=== PATIENT | male | born 1980 | race Caucasian/White ===

== ENCOUNTER 2017-10-10 15:25 | Inpatient (IN) | payer MEDICARE, OTHER ==
[~2017-10-10] VITALS: Ht 172.7 cm; Wt 84.4 kg
[~2017-10-10 15:25] MED LIST: BENZ2TAB PO; DIVA500T PO; DONE10TA7 PO; HALO1TAB PO; VITA100T2 PO
[2017-10-10 17:15] VITALS: BP 124/80; PULSE 100; RESP 16; O2SAT 98
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
[2017-10-10] MEDS ORDERED: diphenhydrAMINE HCL 50 MG CAP PO ONE (19:45)
[2017-10-10] MEDS ORDERED: HALOPERIDOL 5 MG TAB PO ONE (19:45)
[2017-10-10] MEDS ORDERED: LORazepam 2 MG/ML VIAL ONE (19:52)
[2017-10-10] MEDS ORDERED: diphenhydrAMINE HCL 50 MG/ML VIAL IM ONE (20:00)
[2017-10-10] MEDS ORDERED: ZIPRASIDONE MESYLATE 20 MG VIAL IM ONE (20:00)
[2017-10-11 07:16] LABS: AUTOMATED NEUTROPHIL # 3.8 TH/MM3 (1.8-7.7); BASOPHIL % 0.5 % (0.0-2.0); EOSINOPHIL # 0.1 TH/MM3 (0-0.4); EOSINOPHIL % 1.6 % (0.0-4.0); HEMATOCRIT 45.1 % (39.0-51.0); HEMO FLAGS DIFF FINAL; LYMPH % 30.3 % (9.0-44.0); MEAN CELL VOLUME 84.4 FL (80.0-100.0); MEAN CORPUSCULAR HEMOGLOBIN 29.5 PG (27.0-34.0); MEAN CORPUSCULAR HGB CONC 34.9 % (32.0-36.0); MONO % 10.6 % (0.0-8.0); PLATELET COUNT 219 TH/MM3 (150-450); RED BLOOD COUNT 5.35 MIL/MM3 (4.50-5.90); WHITE BLOOD COUNT 6.7 TH/MM3 (4.0-11.0)
[2017-10-11 07:34] LABS: ALT (GPT) 46 U/L (12-78); ANION GAP 7 MEQ/L (5-15); AST (GOT) 38 U/L (15-37); BICARBONATE 26.7 MEQ/L (21.0-32.0); BLOOD UREA NITROGEN 12 MG/DL (7-18); CHLORIDE 102 MEQ/L (98-107); GLOMERULAR FILTRATION RATE 89 ML/MIN (>89); SODIUM (NA) 136 MEQ/L (136-145)
[2017-10-11 07:37] LABS: ALKALINE PHOSPHATASE 88 U/L (45-117); TOTAL BILIRUBIN ADULT 1.4 MG/DL (0.2-1.0)
[2017-10-11 07:43] LABS: ACETAMINOPHEN LESS THAN 2.0 MCG/ML (10.0-30.0); ALCOHOL LESS THAN 3 MG/DL (0-5)
[2017-10-11] MEDS ORDERED: ALUMINUM/MAGNESIUM/SIMETH 30 ML CUP PO PRN (10:45)
[2017-10-11] MEDS ORDERED: MAGNESIUM HYDROXIDE SUSP 30 ML CUP PO PRN (10:45)
[2017-10-11] MEDS ORDERED: ACETAMINOPHEN 325 MG TAB PO PRN (10:45)
--- NOTE | 2017-10-11 11:01 | HHI.HP ---
Provisional Diagnosis Admission Date [place] I. Dementia with behavioral disturbance Certification of Person's Competence To Provide Express and Informed Consent I have personally examined Jose Hoffmann , a person being served at [facility] on, Oct 11, 2017 10:47. Express and informed consent means consent voluntarily given in writing, by a competent person, after sufficient explanation and disclosure of the subject matter involved to enable the person to make a knowing and willful decision without any element of force, fraud, deceit, duress, or other form of constraint or coercion. This person is 18 years of age or older, is not now known to be incompetent to consent to treatment with a guardian advocate, and does not have a health care surrogate or proxy currently making medical treatment decisions. I have found this person to be one of the following: [] Competent to provide express and informed consent, as defined above, for voluntary admission to this facility and is competent to provide express and informed consent for treatment. He/she has the consistent capacity to make well reasoned, willful, and knowing decisions concerning his or her medical or mental health treatment. The person fully and consistently understands the purpose of the admission for examination/placement and is fully capable of personally exercising all rights assured [place] [X] Incompetent to provide express and informed consent to voluntary admission, and this is incompetent to provide express and informed consent to treatment. The person must be transferred to involuntary status and a petition for a guardian advocate filed with the Circuit Court. [] Refusing to provide express and informed consent to voluntary admission but is competent to provide express and informed consent for treatment. The person must be discharged or transferred to involuntary status. Form shall be completed within 24 hours of a person's arrival at the receiving facility and filed in the clinical record of each person: 1. Admitted on a voluntary basis 2. Permitted to provide express and informed consent to his/her own treatment 3. Allowed to transfer from involuntary to voluntary status 4. Prior to permitting a person to consent to his or her own treatment after having been previously found incompetent to consent to treatment. History of Present Illness Capacity: Lacks Capacity HPI 37-year-old male brought in under a Tanner act for bizarre and inappropriate behavior. According to the Tanner act, the patient has been having emotional outbursts. The police have been called several times in the past due to the patient's "mental breakdowns". He was not violent last night but he told law enforcement that he was feeling down. He also indicated to law enforcement and to the physician and our emergency department that he has been off his medication for several months. This was confirmed by his mother, who reportedly works at [employer]. In the emergency department, the patient was observed to be acting in an erratic fashion and was wandering the unit. He required frequent redirection and was felt to be psychotic by the attending physician. He was unable to communicate whether he was suicidal or homicidal. When he got to the [facility] psychiatric unit, he was observed to drink his own urine, become angry and violent, throwing a Gatorade plastic bottle against the wall. At the time of this evaluation, the patient remains confused, disorganized and a poor historian. He would like to be admitted and he would like to "change his diaper". (Patient noted not to be wearing a diaper.) Review of Systems ROS Limitations: Poor Historian Except as stated in HPI: all other systems reviewed are Neg Past Psych History Psychological trauma history Unknown psychological trauma. Patient has history of traumatic brain injury. Violence risk - others (6 mos) High Violence risk - self (6 mos) High Substance Abuse History Drugs/Alcohol past 12 months Denied Past Family Social History Coded Allergies: No Known Allergies (Verified , 10/14/16) Active Scripts Benztropine (Benztropine) 2 Mg Tab, 2 MG PO HS, #30 TAB 0 Refills Prov:Yanely Interiano MD R2 10/17/16 Haloperidol (Haloperidol) 1 Mg Tab, 1 MG PO BID, #60 TAB 0 Refills Prov:Yanely Interiano MD R2 10/17/16 Donepezil (Donepezil) 10 Mg Tab, 10 MG PO HS for Dementia, #30 TAB 0 Refills Prov:Yanely Interiano MD R2 10/17/16 Thiamine (Vitamin B-1) 100 Mg Tab, 100 MG PO DAILY, #30 TAB Prov:Yanely Interiano MD R2 10/16/[address] (Divalproex DR) 500 Mg Tabdr, 500 MG PO BID, #60 TAB Prov:Yanely Interiano MD R2 10/16/16 Family Psych History Unknown. Patient is poor historian. Social History Patient is disabled and unemployed. Reportedly has a mother who works at [employer]. Patient has been noncompliant with prescribed medicine since July of this year. Patient reportedly does not have a problem with alcohol or substance abuse. Patient's Strengths (min. 2) Supportive family and access to healthcare. Physical Exam GENERAL: SKIN: Warm and dry. HEAD: Normocephalic. EYES: No scleral icterus. No injection or drainage. NECK: Supple, trachea midline. No JVD or lymphadenopathy. CARDIOVASCULAR: Regular rate and rhythm without murmurs, gallops, or rubs. RESPIRATORY: Breath sounds equal bilaterally. No accessory muscle use. GASTROINTESTINAL: Abdomen soft, non-tender, nondistended. MUSCULOSKELETAL: No cyanosis, or edema. BACK: Nontender without obvious deformity. No CVA tenderness. Vital Signs Vital Signs Date Time Temp Pulse Resp B/P (MAP) Pulse Ox O2 Delivery O2 Flow Rate FiO2 10/10/17 17:15 100 16 124/80 (95) 98 Lab Results Test 10/11/17 06:55 10/11/17 07:00 White Blood Count 6.7 TH/MM3 Red Blood Count 5.35 MIL/MM3 Hemoglobin 15.8 GM/DL Hematocrit 45.1 % Mean Corpuscular Volume 84.4 FL Mean Corpuscular Hemoglobin 29.5 PG Mean Corpuscular Hemoglobin Concent 34.9 % Red Cell Distribution Width 13.0 % Platelet Count 219 TH/MM3 Mean Platelet Volume 8.0 FL Neutrophils (%) (Auto) 57.0 % Lymphocytes (%) (Auto) 30.3 % Monocytes (%) (Auto) 10.6 % Eosinophils (%) (Auto) 1.6 % Basophils (%) (Auto) 0.5 % Neutrophils # (Auto) 3.8 TH/MM3 Lymphocytes # (Auto) 2.0 TH/MM3 Monocytes # (Auto) 0.7 TH/MM3 Eosinophils # (Auto) 0.1 TH/MM3 Basophils # (Auto) 0.0 TH/MM3 CBC Comment DIFF FINAL Differential Comment Blood Urea Nitrogen 12 MG/DL Creatinine 0.96 MG/DL Random Glucose 77 MG/DL Total Protein 7.5 GM/DL Albumin 4.2 GM/DL Calcium Level 8.9 MG/DL Alkaline Phosphatase 88 U/L Aspartate Amino Transf (AST/SGOT) 38 U/L Alanine Aminotransferase (ALT/SGPT) 46 U/L Total Bilirubin 1.4 MG/DL Sodium Level 136 MEQ/L Potassium Level 4.0 MEQ/L Chloride Level 102 MEQ/L Carbon Dioxide Level 26.7 MEQ/L Anion Gap 7 MEQ/L Estimat Glomerular Filtration Rate 89 ML/MIN Salicylates Level LESS THAN 1.7 MG/DL Acetaminophen Level LESS THAN 2.0 MCG/ML Valproic Acid (Depakene) Level LESS THAN 3 MCG/ML Ethyl Alcohol Level LESS THAN 3 MG/DL Urine Opiates Screen NEG Urine Barbiturates Screen NEG Urine Amphetamines Screen NEG Urine Benzodiazepines Screen NEG Urine Cocaine Screen NEG Urine Cannabinoids Screen NEG Mental Status Examination Appearance: Disheveled Consciousness: Alert Orientation: Person Motor Activity: Normal gait Speech: Incoherent Language: Adequate Fund of Knowledge: Inadequate Attention and Concentration: Inadequate Memory: Impaired Mood: Other Affect: Labile Thought Process & Associations: Disorganized Thought Content: Other Hallucination Type: Other Delusion Type: Bizarre Suicidal Ideation: No Suicidal Plan: No Suicidal Intention: No Homicidal Ideation: No Homicidal Plan: No Homicidal Intention: No Insight: Poor Judgment: Poor Assessment & Plan Problem List: (1) Dementia in other diseases classified elsewhere with behavioral disturbance ICD Codes: F02.81 - Dementia in other diseases classified elsewhere with behavioral disturbance (2) History of traumatic brain injury ICD Codes: Z87.820 - Personal history of traumatic brain injury Assessment & Plan Estimated LOS: days. 37-year-old male presents under a Tanner act for inappropriate behavior and noncompliance with medications. Patient is a poor historian and apparently is under a power of senior attorney. Last night he became violent and threw a Gatorade bottle against the wall. He also drank his own urine. He is currently talking about changing his diaper. He is felt to be in danger of imminent harm to himself or others and for this reason he is being admitted for medication stabilization. This physician has ordered a CBC and comprehensive metabolic panel to determine if the patient has some infectious process or metabolic process which is causing or contributing to his confusion. I am also ordering thyroid stimulating hormone level, vitamin B-12 level and vitamin D level to determine if deficiencies in these areas are causing or contributing to his confusion. I am ordering an EKG to determine his cardiac conduction status prior to placing him back on psychotropic medications. A hospitalist consult was also placed as the patient was observed drinking his own urine and is unable to credibly provide history of any physical complaints he might have. This physician spoke with the patient's nurse, Maddie, regarding his recent behavior in the emergency department. Case management is also being involved to assist with information gathering and disposition planning. Daniel Zhao MD Oct 11, 2017 11:01
[2017-10-11 12:41] VITALS: BP 129/84; PULSE 79; RESP 18; TEMP 98.3; O2SAT 98
[2017-10-11] MEDS: LORazepam 2 MG/ML VIAL IM PRN (23:25)
[2017-10-12 06:07] VITALS: BP 127/75; PULSE 104; RESP 20; TEMP 97.5; O2SAT 100
[2017-10-12 07:31] LABS: AUTOMATED NEUTROPHIL # 3.2 TH/MM3 (1.8-7.7); BASOPHIL % 0.8 % (0.0-2.0); EOSINOPHIL # 0.1 TH/MM3 (0-0.4); HEMATOCRIT 46.3 % (39.0-51.0); HEMO FLAGS DIFF FINAL; LYMPH % 34.2 % (9.0-44.0); MEAN CELL VOLUME 84.2 FL (80.0-100.0); MEAN CORPUSCULAR HEMOGLOBIN 29.3 PG (27.0-34.0); MEAN CORPUSCULAR HGB CONC 34.8 % (32.0-36.0); MONO % 8.4 % (0.0-8.0); NEUT % 54.6 % (16.0-70.0); PLATELET COUNT 242 TH/MM3 (150-450); RED BLOOD COUNT 5.49 MIL/MM3 (4.50-5.90); RED CELL DISTRIBUTION WIDTH 12.9 % (11.6-17.2); WHITE BLOOD COUNT 5.8 TH/MM3 (4.0-11.0)
[2017-10-12 07:56] LABS: ALT (GPT) 53 U/L (12-78); ANION GAP 7 MEQ/L (5-15); AST (GOT) 41 U/L (15-37); BICARBONATE 28.6 MEQ/L (21.0-32.0); BLOOD UREA NITROGEN 10 MG/DL (7-18); CHLORIDE 103 MEQ/L (98-107); GLOMERULAR FILTRATION RATE 106 ML/MIN (>89); POTASSIUM 3.5 MEQ/L (3.5-5.1); SODIUM (NA) 139 MEQ/L (136-145)
[2017-10-12 08:22] LABS: ALKALINE PHOSPHATASE 90 U/L (45-117); HDL CHOLESTEROL 45.1 MG/DL (40.0-60.0); LDL CHOLESTEROL 38 MG/DL (0-99); TOTAL BILIRUBIN ADULT 0.8 MG/DL (0.2-1.0)
--- NOTE | 2017-10-12 10:48 | PD.CONS ---
[facility] By Dr. Zhao, psychiatry Reason for Consult Patient was drinking his own urine Primary Care Physician No Primary Care Physician Diagnoses: History of Present Illness This patient is a 37-year-old gentleman who came to the ED for evaluation of psychiatric behavior. He has a known history of traumatic brain injury with dementia and was at the time of the initial evaluation interacting with internal stimuli. Patient has apparently not been taking his medications as per the record. The psychiatric team to consult to medicine team due to the patient regarding his own urine. The patient does not deny this. He is a very poor historian and makes animal sounds and otherwise has gentle thought with erratic speech. Patient was seen and evaluated with medical staff to the psychiatric unit. Care plan discussed with the extrusion machine operator. There has been no reported increased urinary frequency, dysuria, or other further episodes of imbibing urine. His vital signs and electrolytes are relatively stable at this time. Review of Systems ROS Limitations: Poor Historian (due to his dementia) Past Family Social History Allergies: Coded Allergies: No Known Allergies (Verified , 10/14/16) Past Medical History Traumatic brain injury Dementia Past Surgical History Orthopedic Reported Medications Reviewed in the EMR Active Ordered Medications Reviewed in the EMR Family History Unavailable at this time as patient is a poor historian Social History Patient's power of sports attorney, smokes cigars Physical Exam Vital Signs Vital Signs Date Time Temp Pulse Resp B/P (MAP) Pulse Ox O2 Delivery O2 Flow Rate FiO2 10/12/17 06:07 97.5 104 20 127/75 (92) 100 10/11/17 13:03 10/11/17 12:41 98.3 79 18 129/84 (99) 98 Physical Exam GENERAL: This is a well-nourished, well-developed patient, making duct sounds, tangential and disorganized thought pattern SKIN: No rashes, ecchymoses or lesions. Cool and dry. HEAD: Atraumatic. Normocephalic. No temporal or scalp tenderness. EYES: Pupils equal round and reactive. Extraocular motions intact. No scleral icterus. No injection or drainage. ENT: Nose without bleeding, purulent drainage or septal hematoma. Throat without erythema, tonsillar hypertrophy or exudate. Uvula midline. Airway patent. NECK: Trachea midline. No JVD or lymphadenopathy. Supple, nontender, no meningeal signs. CARDIOVASCULAR: Regular rate and rhythm without murmurs, gallops, or rubs. RESPIRATORY: Clear to auscultation. Breath sounds equal bilaterally. No wheezes , rales, or rhonchi. GASTROINTESTINAL: Abdomen soft, non-tender, nondistended. No hepato-splenomegaly , or palpable masses. No guarding. MUSCULOSKELETAL: Extremities without clubbing, cyanosis, or edema. No joint tenderness, effusion, or edema noted. No calf tenderness. Negative Homans sign bilaterally. NEUROLOGICAL: Awake and alert. Cranial nerves II through XII intact. Motor and sensory grossly within normal limits. Five out of 5 muscle strength in all muscle groups. Normal speech. Laboratory Laboratory Tests Test 10/12/17 06:20 White Blood Count 5.8 Red Blood Count 5.49 Hemoglobin 16.1 Hematocrit 46.3 Mean Corpuscular Volume 84.2 Mean Corpuscular Hemoglobin 29.3 Mean Corpuscular Hemoglobin Concent 34.8 Red Cell Distribution Width 12.9 Platelet Count 242 Mean Platelet Volume 8.5 Neutrophils (%) (Auto) 54.6 Lymphocytes (%) (Auto) 34.2 Monocytes (%) (Auto) 8.4 Eosinophils (%) (Auto) 2.0 Basophils (%) (Auto) 0.8 Neutrophils # (Auto) 3.2 Lymphocytes # (Auto) 2.0 Monocytes # (Auto) 0.5 Eosinophils # (Auto) 0.1 Basophils # (Auto) 0.0 CBC Comment DIFF FINAL Differential Comment Blood Urea Nitrogen 10 Creatinine 0.82 Random Glucose 86 Total Protein 7.3 Albumin 4.2 Calcium Level 8.7 Alkaline Phosphatase 90 Aspartate Amino Transf (AST/SGOT) 41 Alanine Aminotransferase (ALT/SGPT) 53 Total Bilirubin 0.8 Sodium Level 139 Potassium Level 3.5 Chloride Level 103 Carbon Dioxide Level 28.6 Anion Gap 7 Estimat Glomerular Filtration Rate 106 Triglycerides Level 69 Cholesterol Level 97 LDL Cholesterol 38 HDL Cholesterol 45.1 Cholesterol/HDL Ratio 2.15 Vitamin B12 Level 734 25-Hydroxy Vitamin D Total 29.7 Thyroid Stimulating Hormone 3rd Gen 0.923 Result Diagram: 10/12/1761910/12/17619 Assessment and Plan Problem List: (1) Dementia ICD Code: F03.90 - Unspecified dementia without behavioral disturbance Status: Acute Plan: Patient with behavioral disturbance and disorganized thought. It is difficult to get a history from this patient due to his erratic conversation. The patient at this time appears stable. He has no specific complaints. Urine is in fact usually sterile and if this is the case we will not likely pose any long-term effects. At this point there is no further workup. Medicine to follow as needed Assessment and Plan Thank you for this consult, reconsult medicine as needed Sunita Hernandez MD Oct 12, 2017 10:48
--- NOTE | 2017-10-12 12:20 | EKG ---
Date Performed: 10/12/2017 Time Performed: 09:14:59 PTAGE: 37 years EKG: Sinus rhythm NORMAL ECG Compared to PREVIOUS TRACING , sinus arrhythmia no longer present. PREVIOUS TRACIN10/14/2016 16.09 DOCTOR: Daniel Roque Interpretating Date/Time 10/12/2017 12:19:04
--- NOTE | 2017-10-12 14:24 | HHI.PYPN ---
Subjective Remarks This is a request for second opinion. Patient was seen and admission note was reviewed. I agree with the contents of the admission note. Patient was disorganized and delusional at home. Today he remains tangential. He is corneal during the interview. Has not had any outbursts. Mental Status Examination Appearance: Disheveled Consciousness: Alert Orientation: Person, Place Motor Activity: Normal gait Speech: Incoherent Language: Adequate Fund of Knowledge: Inadequate Attention and Concentration: Inadequate Memory: Impaired Mood: Other Affect: Labile Thought Process & Associations: Disorganized Thought Content: Other Hallucination Type: Other Delusion Type: Bizarre Suicidal Ideation: No Suicidal Plan: No Suicidal Intention: No Homicidal Ideation: No Homicidal Plan: No Homicidal Intention: No Insight: Poor Judgment: Poor Results Labs Test 10/12/17 06:20 White Blood Count 5.8 TH/MM3 Red Blood Count 5.49 MIL/MM3 Hemoglobin 16.1 GM/DL Hematocrit 46.3 % Mean Corpuscular Volume 84.2 FL Mean Corpuscular Hemoglobin 29.3 PG Mean Corpuscular Hemoglobin Concent 34.8 % Red Cell Distribution Width 12.9 % Platelet Count 242 TH/MM3 Mean Platelet Volume 8.5 FL Neutrophils (%) (Auto) 54.6 % Lymphocytes (%) (Auto) 34.2 % Monocytes (%) (Auto) 8.4 % Eosinophils (%) (Auto) 2.0 % Basophils (%) (Auto) 0.8 % Neutrophils # (Auto) 3.2 TH/MM3 Lymphocytes # (Auto) 2.0 TH/MM3 Monocytes # (Auto) 0.5 TH/MM3 Eosinophils # (Auto) 0.1 TH/MM3 Basophils # (Auto) 0.0 TH/MM3 CBC Comment DIFF FINAL Differential Comment Blood Urea Nitrogen 10 MG/DL Creatinine 0.82 MG/DL Random Glucose 86 MG/DL Total Protein 7.3 GM/DL Albumin 4.2 GM/DL Calcium Level 8.7 MG/DL Alkaline Phosphatase 90 U/L Aspartate Amino Transf (AST/SGOT) 41 U/L Alanine Aminotransferase (ALT/SGPT) 53 U/L Total Bilirubin 0.8 MG/DL Sodium Level 139 MEQ/L Potassium Level 3.5 MEQ/L Chloride Level 103 MEQ/L Carbon Dioxide Level 28.6 MEQ/L Anion Gap 7 MEQ/L Estimat Glomerular Filtration Rate 106 ML/MIN Triglycerides Level 69 MG/DL Cholesterol Level 97 MG/DL LDL Cholesterol 38 MG/DL HDL Cholesterol 45.1 MG/DL Cholesterol/HDL Ratio 2.15 RATIO Vitamin B12 Level 734 PG/ML 25-Hydroxy Vitamin D Total 29.7 ng/ML Thyroid Stimulating Hormone 3rd Gen 0.923 uIU/ML Vitals/IOs Vital Signs Date Time Temp Pulse Resp B/P (MAP) Pulse Ox O2 Delivery O2 Flow Rate FiO2 10/12/17 06:07 97.5 104 20 127/75 (92) 100 Assessment & Plan Problem List: (1) Dementia in other diseases classified elsewhere with behavioral disturbance ICD Codes: F02.81 - Dementia in other diseases classified elsewhere with behavioral disturbance (2) History of traumatic brain injury ICD Codes: Z87.820 - Personal history of traumatic brain injury Assessment & Plan Patient is on Depakote and Aricept at home. We will resume these medications and get a level next week. I agree with the first opinion to continue petition. Criteria include confusion and bizarre behavior Justification for Cont. Inpt. Patient would decompensate in a less restrictive setting Ryne Rodrigues DO Oct 12, 2017 14:24
[2017-10-12] MEDS: DIVALPROEX SODIUM E.R. 500 MG TAB PO SCH ×3 (14:30→21:00)
[2017-10-12 18:18] VITALS: BP 121/70; PULSE 75; RESP 19; TEMP 97.8; O2SAT 100
[2017-10-12] MEDS: DONEPEZIL HCL 5 MG TAB PO SCH (20:37)
[2017-10-13] MEDS: LORazepam 2 MG/ML VIAL IM PRN (05:30)
[2017-10-13 05:47] VITALS: BP 136/93; PULSE 77; RESP 16; TEMP 97.9; O2SAT 97
[2017-10-13] MEDS: DIVALPROEX SODIUM E.R. 500 MG TAB PO SCH ×2 (08:16→20:44)
[2017-10-13 10:13] LABS: HEMOGLOBIN A1a 1.1 %; HEMOGLOBIN A1b 1.7 %; HEMOGLOBIN Ao 86.1 %; HEMOGLOBIN LA1C 1.9 %; HEMOGLOBIN P3 3.4 %
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
[2017-10-13 16:50] VITALS: BP 110/65; PULSE 81; RESP 18; TEMP 98.3; O2SAT 98
[2017-10-13] MEDS: DONEPEZIL HCL 5 MG TAB PO SCH (20:44)
[2017-10-13] MEDS: LORazepam 1 MG TAB PO PRN (20:44)
[2017-10-14 06:05] VITALS: BP 123/73; PULSE 56; RESP 17; TEMP 97.8
[2017-10-14 06:07] VITALS: TEMP 97.8
[2017-10-14] MEDS: DIVALPROEX SODIUM E.R. 500 MG TAB PO SCH ×2 (08:00→20:23)
--- NOTE | 2017-10-14 09:48 | HHI.PYPN ---
Subjective Remarks Patient seen and examined with nurse. Chart reviewed. Case discussed with nursing staff. On my examination today, the patient presents as somewhat oddly related but calm and cooperative with interview. He says that prior to admission he stopped his medications because of "unmanageability" although he has resume these medications on the unit without incident. He says that off of his medications he began to see things as if through "an orange lens, whitish, pinkish, red!" He denies AVH presently. Denies SI/HI. Some loosening of associations noted. Denies side effects from medications. No physical complaints. Review of Systems ROS Limitations: Poor Historian Except as stated in HPI: all other systems reviewed are Neg Mental Status Examination Appearance: Appropriate Consciousness: Alert Orientation: Person, Place Motor Activity: Normal gait, Other (no motor abnormalities noted) Speech: Unremarkable Language: Adequate Fund of Knowledge: Inadequate Attention and Concentration: Easily Distracted Memory: Impaired (suspect remains impaired) Mood: Other (calm) Affect: Appropriate, Euthymic Thought Process & Associations: Loose associations Thought Content: Bizarre thinking Hallucination Type: None (denies AVH) Delusion Type: None Suicidal Ideation: No Homicidal Ideation: No Insight: Poor Judgment: Poor Results Labs Item Value Date Time White Blood Count 5.8 TH/MM3 10/12/17 0620 Hemoglobin 16.1 GM/DL 10/12/17 0620 Platelet Count 242 TH/MM3 10/12/17 0620 Sodium Level 139 MEQ/L 10/12/17 0620 Potassium Level 3.5 MEQ/L 10/12/17 0620 Chloride Level 103 MEQ/L 10/12/17 0620 Carbon Dioxide Level 28.6 MEQ/L 10/12/17 0620 Blood Urea Nitrogen 10 MG/DL 10/12/17 0620 Creatinine 0.82 MG/DL 10/12/17 0620 Aspartate Amino Transf (AST/SGOT) 41 U/L H 10/12/17 0620 Alanine Aminotransferase (ALT/SGPT) 53 U/L 10/12/17 0620 Alkaline Phosphatase 90 U/L 10/12/17 0620 Vitamin B12 Level 734 PG/ML 10/12/17 0620 25-Hydroxy Vitamin D Total 29.7 ng/ML L 10/12/17 0620 Thyroid Stimulating Hormone 3rd Gen 0.923 uIU/ML 10/12/17 0620 Urine Opiates Screen NEG 10/11/17 07 Urine Barbiturates Screen NEG 10/11/17 07 Urine Amphetamines Screen NEG 10/11/17 07 Urine Benzodiazepines Screen NEG 10/11/17 07 Urine Cocaine Screen NEG 10/11/17 07 Urine Cannabinoids Screen NEG 10/11/17 07 Ethyl Alcohol Level LESS THAN 3 MG/DL 10/11/17 06 Valproic Acid (Depakene) Level LESS THAN 3 MCG/ML L 10/11/17 06 Labs reviewed. I note that Depakote level was undetectable on presentation here. EKG reveals sinus rhythm; QTc within normal limits. 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 Continue Depakote and Aricept as ordered. Plan to check a Depakote and ammonia level after the appropriate interval. Continue to monitor on the inpatient unit. Counselor to obtain collateral. Continue other medications and care as ordered. Justification for Cont. Inpt. Risk for decompensation in less restrictive environment Discharge Planning To be determined. Case discussed with counselor. Request HC Surrog/Guard Advoc?: Yes Tay Bourne MD Oct 14, 2017 09:48
[2017-10-14 17:17] VITALS: BP 129/70; PULSE 51; RESP 18; TEMP 98; O2SAT 100
[2017-10-14] MEDS: LORazepam 2 MG/ML VIAL IM PRN (20:05)
[2017-10-14] MEDS: DONEPEZIL HCL 5 MG TAB PO SCH (20:22)
[2017-10-15 06:17] VITALS: BP 137/83; PULSE 66; RESP 16; TEMP 97.6; O2SAT 98
[2017-10-15] MEDS: DIVALPROEX SODIUM E.R. 500 MG TAB PO SCH ×2 (08:00→20:26)
--- NOTE | 2017-10-15 10:02 | HHI.PYPN ---
Subjective Remarks Patient seen and examined with nurse. Chart reviewed. Case discussed in treatment team. Per nursing staff, no significant behavioral issues overnight. On my examination today, speech remains a little rambling, and the patient does diverge into seemingly disconnected details at times, but overall he seems more focused and coherent. He is calm and remains in good behavioral control. He denies any SI or HI. Denies any AVH. No frankly delusional material. Denies side effects from medications. No physical complaints. Spoke with patient's mother/healthcare surrogate. She notes that the patient has a history of recurrent medication nonadherence. She says that in the setting of this nonadherence he will fixate on numbers and engage in risky behaviors such as allowing homeless people to live with him. She notes that even at baseline he needs some prompting for his ADLs. She would like to see the patient placed in a structured living environment. She notes that he has been on antipsychotic medications, namely Haldol in the past but has not seemed to improve with these and has perhaps experienced some of the motor side effects of these medications. We discuss treatment plan as outlined below. Review of Systems ROS Limitations: Poor Historian Except as stated in HPI: all other systems reviewed are Neg Mental Status Examination Appearance: Appropriate Consciousness: Alert Orientation: Person, Place Motor Activity: Normal gait, Other (No motoric abnormalities appreciated.) Speech: Unremarkable Language: Adequate Fund of Knowledge: Inadequate Attention and Concentration: Easily Distracted Memory: Impaired (impaired on clinical exam) Mood: Other (calm) Affect: Appropriate Thought Process & Associations: Linear Thought Content: Bizarre thinking Hallucination Type: None (denies AVH) Delusion Type: None Suicidal Ideation: No Homicidal Ideation: No Insight: Poor Judgment: Poor Results Labs Labs reviewed. No new labs. Vitals/IOs Vital Signs Date Time Temp Pulse Resp B/P (MAP) Pulse Ox O2 Delivery O2 Flow Rate FiO2 10/15/17 06:17 97.6 66 16 137/83 (101) 98 Assessment & Plan Problem List: (1) Dementia in other diseases classified elsewhere with behavioral disturbance ICD Codes: F02.81 - Dementia in other diseases classified elsewhere with behavioral disturbance (2) TBI (traumatic brain injury) ICD Codes: S06.9X9A - Unspecified intracranial injury with loss of consciousness of unspecified duration, initial encounter Status: Chronic Assessment & Plan Continue Depakote and Aricept as ordered. Plan to check a Depakote and ammonia level . Continue to monitor on inpatient unit. Continue other meds and care as ordered. Justification for Cont. Inpt. High risk for decompensation in less restrictive environment. Discharge Planning ?Placement. Case discussed with counselor. Request HC Surrog/Guard Advoc?: Yes Tay Bourne MD Oct 15, 2017 10:02
--- NOTE | 2017-10-15 12:26 | PD.TTN ---
Patient Problems 1. Discharge planning 2. Medication compliance 3. Knowledge deficit 4. Lack of coping skills Progress Toward Goals Provider Present: Dr. Abran Bourne Provider Input: Pt medication regiment will not be adjusted today though a Depakote level has been ordered and changes may be made depending on these results. Nurse(s) Present: Dilan Mirza, RN Nurse(s) Input: Pt appears bizarre, incoherent at times, medication compliant, pleasant and has been no behavioral issue on unit. Psychiatric Counselors Present: ROBERT Silver Psych Therapist Input: Pt remains confused, disorganized and struggles with clarity at times but remains cooperative and appropriate. He has been observed to be wandering the unit and with some bizarre behaviors but is visible. He is interacting well with peers and staff. Pt presents with limited insight into condition and need for care as evidenced by chronic noncompliance with medication regiment. Pt appears to be utilizing coping and emotional regulation skills as evidenced by lack of outbursts on unit. Pt has been compliant with regiment on unit. Family is working to place pt at [facility] if possible. Group Spec/RT/OT/SCOTT Present: GABE Scott Group Spec/RT/OT/SCOTT Input: Pt does not attend groups. Discharge Plan Pt will be referred to [facility] and will be evaluated for possibility of admission. Follow up would come from facility providers. Documentation Scribe: ROBERT Silver Jonathan LMHC Oct 15, 2017 12:25
[2017-10-15 17:04] VITALS: BP 112/73; PULSE 91; RESP 18; TEMP 98.4; O2SAT 98
[2017-10-15] MEDS: DONEPEZIL HCL 5 MG TAB PO SCH (20:26)
[2017-10-16 05:43] VITALS: BP 131/72; PULSE 85; RESP 18; TEMP 97.5; O2SAT 99
--- NOTE | 2017-10-16 09:05 | HHI.PYPN ---
Subjective Remarks Patient seen and examined with nurse. Chart reviewed. Case discussed with nursing staff who reports the patient has had no behavioral outbursts but has engaged in some bizarre gesturing. I find the patient in the day area engrossed in making a paper airplane. He folds and unfolds this carefully and deliberately and holds it up and winds up as if to throw it. When I ask about the purpose of the gestures noted by nursing staff, patient tells me this is "freedom of expression." He makes some odd allusions to "directing energy." He engages in some echopraxia. He is somewhat disheveled and malodorous. He denies side effects from medications. No physical complaints. Patient's mother was in to visit with patient yesterday evening. I did try to call her this afternoon to discuss her impressions of the visit, and I left a generic voicemail requesting a call back. Counselor had spoken with mother earlier today and relates that she found the patient significantly off his baseline still. Review of Systems ROS Limitations: Psychotic, Poor Historian Except as stated in HPI: all other systems reviewed are Neg Mental Status Examination Appearance: Appropriate Consciousness: Alert Orientation: Person, Place Motor Activity: Normal gait, Other (no abnormal motor movements noted) Speech: Unremarkable Language: Adequate (somewhat vague in content) Fund of Knowledge: Inadequate Attention and Concentration: Easily Distracted Memory: Impaired (remains impaired on clinical exam) Mood: Other (calm) Affect: Blunt Thought Process & Associations: Circumstantial Thought Content: Bizarre thinking Hallucination Type: None Delusion Type: None Suicidal Ideation: No Homicidal Ideation: No Insight: Poor Judgment: Poor Results Labs Labs reviewed. EKG was sinus rhythm with QTc 410ms. Vitals/IOs Vital Signs Date Time Temp Pulse Resp B/P (MAP) Pulse Ox O2 Delivery O2 Flow Rate FiO2 10/16/17 05:43 97.5 85 18 131/72 (91) 99 Assessment & Plan Problem List: (1) Dementia in other diseases classified elsewhere with behavioral disturbance ICD Codes: F02.81 - Dementia in other diseases classified elsewhere with behavioral disturbance (2) TBI (traumatic brain injury) ICD Codes: S06.9X9A - Unspecified intracranial injury with loss of consciousness of unspecified duration, initial encounter Status: Chronic Assessment & Plan Continue Depakote and Aricept as ordered. Check a Depakote and ammonia level in the morning. Patient's presentation does seem more frankly psychotic today. Nothing in patient's lab workup to suggest a medical cause (although will need to follow up levels tomorrow). Check EEG as patient does have structural brain disease, and seizure is a possible explanation for posturing and disorganized behaviors. Catatonia is a possibility given his posturing/ gesturing and echophenomena, and I will order an Ativan IM challenge to see if this is of any benefit. If not, patient might benefit from addition of an antipsychotic. Continue to monitor on high acuity unit. Continue other medications and care as ordered. Justification for Cont. Inpt. Risk for decompensation in less restrictive environment Discharge Planning Pending psychiatric stabilization. ?Placement. Request HC Surrog/Guard Advoc?: Yes Tay Bourne MD Oct 16, 2017 09:05
[2017-10-16] MEDS: DIVALPROEX SODIUM E.R. 500 MG TAB PO SCH ×2 (09:06→20:31)
[2017-10-16] MEDS: LORazepam 1 MG TAB PO PRN (14:25)
[2017-10-16] MEDS ORDERED: LORazepam 2 MG/ML VIAL IM ONE (14:30)
[2017-10-16 16:51] VITALS: BP 119/71; PULSE 69; RESP 18; TEMP 98.1; O2SAT 98
[2017-10-16] MEDS: DONEPEZIL HCL 5 MG TAB PO SCH (20:31)
[2017-10-17 05:46] VITALS: BP 114/73; PULSE 92; RESP 16; TEMP 98; O2SAT 99
[2017-10-17] MEDS: DIVALPROEX SODIUM E.R. 500 MG TAB PO SCH ×2 (08:07→20:48)
--- NOTE | 2017-10-17 10:10 | HHI.PYPN ---
Subjective Remarks Patient seen and examined. Chart reviewed. Case discussed with nursing staff who reports patient's behavior on the unit remains fairly bizarre and disorganized. For example, patient reportedly tried to put crayons in his milk at breakfast this morning and then tried to get other people to drink it. He also reportedly mashed all of his food together into a paste. On my exam, patient remains bizarre. He continues to gesture in an odd fashion, and when I ask him what he is doing, he says that he is "stretching." He appears somewhat internally stimulated. No evident side effects from medications. No physical complaints. Spoke with patient's mother Therese over the phone at [phone]. We discuss patient's progress on the unit so far, workup, and treatment plan going forward. Mother notes that he derived the most benefit when Aricept was added, although is seems likely that patient was less frankly psychotic when this was done. We discuss pharmacotherapeutic options including no change, addition of antipsychotic, titration of Aricept, titration of Depakote. We settle on addition of antipsychotic. I suggest an agent with low liability for EPS as patient had motor side effects from Haldol. Mother notes he tolerated Seroquel well in the remote past. We will add Seroquel to existing regimen. Review of Systems ROS Limitations: Psychotic, Poor Historian Except as stated in HPI: all other systems reviewed are Neg Mental Status Examination Appearance: Appropriate Consciousness: Alert Orientation: Person (at least) Motor Activity: Normal gait, Other (gesturing and posturing but no abnormal motor movements noted.) Speech: Unremarkable Language: Adequate (somewhat vague in content) Fund of Knowledge: Inadequate Attention and Concentration: Easily Distracted Memory: Impaired (impaired on clinical exam) Mood: Other (calm) Affect: Blunt Thought Process & Associations: Circumstantial Thought Content: Bizarre thinking Hallucination Type: Other (Denies but appears int stim) Delusion Type: None Suicidal Ideation: No Homicidal Ideation: No Insight: Poor Judgment: Poor Results Labs Test 10/17/17 09:10 Ammonia 34 MCMOL/L Labs reviewed. VPA level within therapeutic range. Ammonia level mildly elevated. Vitals/IOs Vital Signs Date Time Temp Pulse Resp B/P (MAP) Pulse Ox O2 Delivery O2 Flow Rate FiO2 10/17/17 05:46 98.0 92 16 114/73 (87) 99 Assessment & Plan Problem List: (1) Dementia in other diseases classified elsewhere with behavioral disturbance ICD Codes: F02.81 - Dementia in other diseases classified elsewhere with behavioral disturbance (2) TBI (traumatic brain injury) ICD Codes: S06.9X9A - Unspecified intracranial injury with loss of consciousness of unspecified duration, initial encounter Status: Chronic Assessment & Plan Add Seroquel 50mg BID to target psychotic symptoms in setting of dementia. Add lactulose for hyperammonemia and recheck ammonia level after the weekend. Continue Depakote and Aricept as ordered. Follow up EEG. Continue other medications and care as ordered. Patient's case was presented to the [place] [facility] and placed in continuance for 2 weeks with his mother to serve as healthcare surrogate. Justification for Cont. Inpt. Med changes. Impairment in reality construction. High risk for decompensation in less restrictive environment. Discharge Planning Placement once psychiatrically stabilized. Case discussed with counselor. Request HC Surrog/Guard Advoc?: Yes Tay Bourne MD Oct 17, 2017 10:10
[2017-10-17] MEDS: LACTULOSE SYRUP 20 GM/30 ML CUP PO SCH ×3 (13:00→16:35)
[2017-10-17 18:13] VITALS: BP 11/71; PULSE 81; RESP 17; TEMP 98.3; O2SAT 98
[2017-10-17] MEDS: QUEtiapine FUMARATE 25 MG TAB PO SCH (20:48)
[2017-10-17] MEDS: DONEPEZIL HCL 5 MG TAB PO SCH (20:49)
[2017-10-18 05:35] VITALS: BP 115/72; PULSE 89; RESP 18; TEMP 97.9; O2SAT 100
--- NOTE | 2017-10-18 09:25 | HHI.PYPN ---
Subjective Remarks Patient seen and examined with nurse. Chart reviewed. Case discussed with nursing staff. Ongoing disorganized behavior: patient spilled urine from a beside urinal onto the floor; he was also noted to be pulling up bits of linoleum tile per nursing staff. On my exam, patient remains bizarre. He is stilted and overly formal in our interaction. He keeps a fixed stare on the wall as we talk and says that he is "trying to remain focused on my focal points." Smiles inappropriately at times. He denies AVH but remains frankly internally stimulated. Denies side effects from medications. Denies SI or HI. No physical complaints. Review of Systems ROS Limitations: Psychotic, Poor Historian Except as stated in HPI: all other systems reviewed are Neg Mental Status Examination Appearance: Appropriate Consciousness: Alert Orientation: Person Motor Activity: Normal gait, Other (no hand tremor, no cogwheeling, no dystonia , no dyskinesia noted. He continues to gesture and posture at times as before.) Speech: Unremarkable Language: Other (somewhat stilted, overly formal) Fund of Knowledge: Inadequate Attention and Concentration: Easily Distracted Memory: Impaired (remains impaired on clinical exam) Mood: Other (calm) Affect: Other (somewhat inappropriate) Thought Process & Associations: Circumstantial Thought Content: Bizarre thinking Hallucination Type: Other (remains internally stimulated) Delusion Type: None Suicidal Ideation: No Homicidal Ideation: No Insight: Poor Judgment: Poor Results Labs Labs reviewed. No new labs. EEG read as normal. Vitals/IOs Vital Signs Date Time Temp Pulse Resp B/P (MAP) Pulse Ox O2 Delivery O2 Flow Rate FiO2 10/18/17 05:35 97.9 89 18 115/72 (86) 100 Assessment & Plan Problem List: (1) Dementia in other diseases classified elsewhere with behavioral disturbance ICD Codes: F02.81 - Dementia in other diseases classified elsewhere with behavioral disturbance (2) TBI (traumatic brain injury) ICD Codes: S06.9X9A - Unspecified intracranial injury with loss of consciousness of unspecified duration, initial encounter Status: Chronic Assessment & Plan Titrate Seroquel through the weekend to interval target dose of 300mg/day to target psychosis. Monitor for EPS, although patient presently has none. Patient had negative response to Ativan challenge for possible catatonia. Continue Depakote as ordered with lactulose for hyperammonemia. Plan to check a follow-up ammonia level after the weekend. Continue Aricept as ordered. Continue to monitor on the high acuity unit. Continue other medications and care as ordered. Justification for Cont. Inpt. Med changes. Impairment in reality construction. High risk for decompensation in less restrictive environment. Discharge Planning Placement following psychiatric stabilization. Case discussed with counselor. Request HC Surrog/Guard Advoc?: Yes Tay Bourne MD Oct 18, 2017 09:25
--- NOTE | 2017-10-18 09:41 | MG ---
cc: ANA MARIA ROBIN Lab No: [id number] Date: 10/17/17 Age: Sex: M Race: Sleep EEG. [place] A[place] for bizarre behavior, bipolar, dementia, Aricept Depakote Ativan Diffuse alpha and beta rhythms are noted. Recording overall is synchronous and symmetric. At times a symmetric 9 Hz 60 microvolt posterior rhythm is seen. Photic stimulation was performed without significant posterior driving. Hyperventilation was performed without significant change in the background. The patient fell asleep and had snoring but did not reach stage II sleep. IMPRESSION Normal awake and sleep EEG, no evidence of a focal or diffuse abnormality. The patient was noted to be snoring at times. MD WOJCIECH Davidson/ /8:54 PM /9:38 AM
[2017-10-18] MEDS: QUEtiapine FUMARATE 25 MG TAB PO SCH ×3 (10:07→20:32)
[2017-10-18] MEDS: LACTULOSE SYRUP 20 GM/30 ML CUP PO SCH ×3 (10:07→17:36)
[2017-10-18] MEDS: DIVALPROEX SODIUM E.R. 500 MG TAB PO SCH ×2 (10:08→20:31)
--- NOTE | 2017-10-18 12:12 | PD.TTN ---
Patient Problems 1. Discharge planning 2. Medication compliance 3. Knowledge deficit 4. Lack of coping skills Progress Toward Goals Provider Present: Dr. Abran Bourne Provider Input: Pt medication regiment will not be adjusted today though a Depakote level has been ordered and changes may be made depending on these results. 10/18- Pt medication regiment has been adjusted including addition of Seroquel. Pt has been referred for placement at an [facility]. Nurse(s) Present: Dilan Mirza RN Nurse(s) Input: Pt appears bizarre, incoherent at times, medication compliant, pleasant and has been no behavioral issue on unit. 10/18- Aaliyah Hi RN Pt appears calm, medication compliant, and denies symptoms but presents as preoccpied. Pt was found to have thrown his pee in his room last night. Psychiatric Counselors Present: ROBERT Silver Psych Therapist Input: Pt remains confused, disorganized and struggles with clarity at times but remains cooperative and appropriate. He has been observed to be wandering the unit and with some bizarre behaviors but is visible. He is interacting well with peers and staff. Pt presents with limited insight into condition and need for care as evidenced by chronic noncompliance with medication regiment. Pt appears to be utilizing coping and emotional regulation skills as evidenced by lack of outbursts on unit. Pt has been compliant with regiment on unit. Family is working to place pt at [facility] if possible. 10/18- Pt continues to appear bizarre, preoccupied, withdrawn to self, cooperative and appropriate. Pt presents with ongoing thought disturbance and bizarre behavior. Insight remains poor into condition and need for care. He appears to be utilizing some level of coping and emotional regulation skills as he has had no outbursts. Group Spec/RT/OT/SCOTT Present: GABE Scott Group Spec/RT/OT/SCOTT Input: Pt does not attend groups. 10/18- Pt has been attending groups and participating in group activities. No behaviors to note. Discharge Plan SMA Pt will be referred to [facility] and will be evaluated for possibility of admission. Follow up would come from facility providers. Documentation Scribe: ROBERT Silver Jonathan LMHC Oct 18, 2017 12:12
[2017-10-18 18:07] VITALS: BP 97/56; PULSE 117; RESP 18; TEMP 97.9; O2SAT 97
[2017-10-18] MEDS: DONEPEZIL HCL 5 MG TAB PO SCH (20:32)
[2017-10-19 05:56] VITALS: BP 104/57; PULSE 77; RESP 18; TEMP 97.6; O2SAT 99
[2017-10-19] MEDS: DIVALPROEX SODIUM E.R. 500 MG TAB PO SCH ×2 (09:01→20:14)
[2017-10-19] MEDS: LACTULOSE SYRUP 20 GM/30 ML CUP PO SCH ×3 (09:01→16:57)
[2017-10-19] MEDS: QUEtiapine FUMARATE 25 MG TAB PO SCH ×2 (09:01→20:14)
--- NOTE | 2017-10-19 12:05 | HHI.PYPN ---
Subjective Remarks Pt seen and discussed with staff. He remains disorganized and psychotic. He had to be redirected due to throwing socks on peers. He is compliant with medications.He remains internally stimulated. He has been compulsively "cleaning" room with a sock. Mental Status Examination Appearance: Appropriate Consciousness: Alert Orientation: Person Motor Activity: Normal gait, Other (no hand tremor, no cogwheeling, no dystonia , no dyskinesia noted. He continues to gesture and posture at times as before.) Speech: Unremarkable Language: Other (somewhat stilted, overly formal) Fund of Knowledge: Inadequate Attention and Concentration: Easily Distracted Memory: Impaired (remains impaired on clinical exam) Mood: Other (calm) Affect: Other (somewhat inappropriate) Thought Process & Associations: Circumstantial Thought Content: Bizarre thinking Hallucination Type: Auditory, Other (remains internally stimulated) Delusion Type: Bizarre Suicidal Ideation: No Suicidal Plan: No Suicidal Intention: No Homicidal Ideation: No Homicidal Plan: No Homicidal Intention: No Insight: Poor Judgment: Poor Results Vitals/IOs Vital Signs Date Time Temp Pulse Resp B/P (MAP) Pulse Ox O2 Delivery O2 Flow Rate FiO2 10/19/17 05:56 97.6 77 18 104/57 (73) 99 Assessment & Plan Problem List: (1) Dementia in other diseases classified elsewhere with behavioral disturbance ICD Codes: F02.81 - Dementia in other diseases classified elsewhere with behavioral disturbance (2) TBI (traumatic brain injury) ICD Codes: S06.9X9A - Unspecified intracranial injury with loss of consciousness of unspecified duration, initial encounter Status: Chronic Assessment & Plan Continue current tx plan Estimated LOS: days Justification for Cont. Inpt. risk of decompensation Request HC Surrog/Guard Advoc?: Yes Nina Villalobos MD Oct 19, 2017 12:05
[2017-10-19] MEDS: LORazepam 1 MG TAB PO PRN ×2 (13:06→20:14)
[2017-10-19 18:13] VITALS: BP 159/70; PULSE 105; RESP 19; TEMP 98; O2SAT 98
[2017-10-19] MEDS: DONEPEZIL HCL 5 MG TAB PO SCH (20:14)
[2017-10-20 05:50] VITALS: BP 134/86; PULSE 58; RESP 18; TEMP 97.9; O2SAT 99
[2017-10-20] MEDS: DIVALPROEX SODIUM E.R. 500 MG TAB PO SCH ×2 (08:28→20:45)
[2017-10-20] MEDS: QUEtiapine FUMARATE 25 MG TAB PO SCH ×2 (08:28→20:45)
[2017-10-20] MEDS: LACTULOSE SYRUP 20 GM/30 ML CUP PO SCH ×3 (08:31→17:03)
--- NOTE | 2017-10-20 11:42 | HHI.PYPN ---
Subjective Remarks Pt seen and discussed with staff. Pt remains disorganized in behaviors and thought process. He flushed entire contents of trash can. He has been making strange hand gestures per staff. Pt states that there is a hidden meaning in posters that adorn the lou that only he can see. No SI/HI Mental Status Examination Appearance: Appropriate Consciousness: Alert Orientation: Person Motor Activity: Normal gait, Other (no hand tremor, no cogwheeling, no dystonia , no dyskinesia noted. He continues to gesture and posture at times as before.) Speech: Unremarkable Language: Other (somewhat stilted, overly formal) Fund of Knowledge: Inadequate Attention and Concentration: Easily Distracted Memory: Impaired (remains impaired on clinical exam) Mood: Other (calm) Affect: Other (somewhat inappropriate) Thought Process & Associations: Circumstantial Thought Content: Bizarre thinking Hallucination Type: Auditory, Other (remains internally stimulated) Delusion Type: Bizarre Suicidal Ideation: No Suicidal Plan: No Suicidal Intention: No Homicidal Ideation: No Homicidal Plan: No Homicidal Intention: No Insight: Poor Judgment: Poor Results Vitals/IOs Vital Signs Date Time Temp Pulse Resp B/P (MAP) Pulse Ox O2 Delivery O2 Flow Rate FiO2 10/20/17 05:50 97.9 58 18 134/86 (102) 99 Assessment & Plan Problem List: (1) 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 Estimated LOS: days Justification for Cont. Inpt. risk of decompensaton Request HC Surrog/Guard Advoc?: Yes Nina Villalobos MD Oct 20, 2017 11:42
[2017-10-20 15:51] VITALS: BP 117/62; PULSE 87; RESP 18; TEMP 98.1; O2SAT 99
[2017-10-20] MEDS: DONEPEZIL HCL 5 MG TAB PO SCH (20:45)
[2017-10-21 06:06] VITALS: BP 132/85; PULSE 80; RESP 17; TEMP 98; O2SAT 97
--- NOTE | 2017-10-21 08:22 | HHI.PYPN ---
Subjective Remarks Patient seen and examined with nurse. Chart reviewed. Case discussed with nursing staff. On my examination today, patient presents as interpersonally odd and excessively formal in the interaction. He is concrete in his thought process. He continues to gesture and posture but insists that he is just doing "breathing exercises, a spin-class of sorts." Denies AVH but appears internally preoccupied. Denies SI or HI. Denies side effects from medications. No physical complaints. Discussed case with mother/HCS. She notes that he does not engage in gesturing behavior at baseline. We discuss workup so far and treatment options going forward. She is in agreement with plan as outlined below. Review of Systems ROS Limitations: Poor Historian Except as stated in HPI: all other systems reviewed are Neg Mental Status Examination Appearance: Appropriate Consciousness: Alert Orientation: Person, Place Motor Activity: Normal gait, Other (gestures as noted above. No other motor abnormalities appreciated.) Speech: Unremarkable Language: Other (remains stilted, overly formal) Fund of Knowledge: Inadequate Attention and Concentration: Easily Distracted Memory: Impaired (remains impaired on clinical exam) Mood: Other (calm) Affect: Other (overly formal) Thought Process & Associations: Circumstantial Thought Content: Bizarre thinking Hallucination Type: None, Other (remains internally stimulated) Delusion Type: None Suicidal Ideation: No Suicidal Plan: No Suicidal Intention: No Homicidal Ideation: No Homicidal Plan: No Homicidal Intention: No Insight: Poor Judgment: Poor Results Labs Test 10/21/17 05:39 Ammonia 47 MCMOL/L Labs reviewed. Ongoing hyperammonemia noted. Vitals/IOs Vital Signs Date Time Temp Pulse Resp B/P (MAP) Pulse Ox O2 Delivery O2 Flow Rate FiO2 10/21/17 06:06 98.0 80 17 132/85 (101) 97 Assessment & Plan Problem List: (1) Dementia in other diseases classified elsewhere with behavioral disturbance ICD Codes: F02.81 - Dementia in other diseases classified elsewhere with behavioral disturbance (2) TBI (traumatic brain injury) ICD Codes: S06.9X9A - Unspecified intracranial injury with loss of consciousness of unspecified duration, initial encounter Status: Chronic Assessment & Plan Titrate Aricept to 23mg qHS to target current symptoms as mother reports he had greatest improvement in the past when this agent was added. Continue Depakote and Seroquel as ordered. Lactulose does not seem to be improving hyperammonemia. I will d/c lactulose and replace with Carnitor and plan to recheck an ammonia level later this week. Continue to monitor on the inpatient unit. Continue other medications and care as ordered. Justification for Cont. Inpt. Med changes. Risk for decompensation in less restrictive environment. Discharge Planning Placement. Case discussed with counselor. Request HC Surrog/Guard Advoc?: Yes Tay Bourne MD Oct 21, 2017 08:22
[2017-10-21] MEDS: LACTULOSE SYRUP 20 GM/30 ML CUP PO SCH ×2 (08:58→13:09)
[2017-10-21] MEDS: DIVALPROEX SODIUM E.R. 500 MG TAB PO SCH ×2 (08:59→20:55)
[2017-10-21] MEDS: QUEtiapine FUMARATE 25 MG TAB PO SCH (08:59)
[2017-10-21] MEDS ORDERED: PILL SPLITTER OTHER PRN (15:00)
[2017-10-21] MEDS: levOCARNitine 10% ORAL SOLN 118 ML BTL PO SCH (17:51)
[2017-10-21 18:00] VITALS: BP 128/60; PULSE 77; RESP 18; TEMP 97.4; O2SAT 97
[2017-10-21] MEDS: QUEtiapine FUMARATE 100 MG TAB PO SCH (20:54)
[2017-10-21] MEDS ORDERED: DONEPEZIL HCL 23 MG TAB PO SCH (21:00)
[2017-10-22 05:41] VITALS: BP 112/71; PULSE 80; RESP 18; TEMP 97.3; O2SAT 97
[2017-10-22] MEDS: QUEtiapine FUMARATE 100 MG TAB PO SCH (08:49)
[2017-10-22] MEDS: levOCARNitine 10% ORAL SOLN 118 ML BTL PO SCH ×3 (08:49→17:01)
[2017-10-22] MEDS: DIVALPROEX SODIUM E.R. 500 MG TAB PO SCH ×2 (08:49→21:00)
--- NOTE | 2017-10-22 11:02 | HHI.PYPN ---
Subjective Remarks Patient seen and examined with nurse. Chart reviewed. Case discussed with nursing staff and in treatment team. Patient has been no behavioral problem per nursing staff. On my examination today, the patient remains oddly related. He continues to exhibit some gesturing behaviors. He denies audiovisual hallucinations but appears little internally stimulated. Some verbal perseveration and neologism noted. He tells me for example that he is feeling "well, sergey, snout, living, loving, rising, roving." He complains of dry mouth , and to demonstrate this he does an elaborate pantomime where he slaps his right cheek with his right hand and spits. He says that this symbolizes spitting out a tooth because of his mouth dryness. No other side effects from medications. No physical complaints. Review of Systems ROS Limitations: Psychotic, Poor Historian Except as stated in HPI: all other systems reviewed are Neg Mental Status Examination Appearance: Appropriate Consciousness: Alert Orientation: Person, Place Motor Activity: Normal gait, Other (no new motor abnormalities noted) Speech: Unremarkable Language: Neologism, Perseveration Fund of Knowledge: Inadequate Attention and Concentration: Easily Distracted Memory: Impaired (remains impaired on clinical exam) Mood: Other (calm) Affect: Other (remains a little formal) Thought Process & Associations: Circumstantial, Tangential (at times) Thought Content: Bizarre thinking Hallucination Type: None, Other (remains internally stimulated) Delusion Type: None Suicidal Ideation: No Suicidal Plan: No Suicidal Intention: No Homicidal Ideation: No Homicidal Plan: No Homicidal Intention: No Insight: Poor Judgment: Poor Results Labs Labs reviewed. No new labs. Vitals/IOs Vital Signs Date Time Temp Pulse Resp B/P (MAP) Pulse Ox O2 Delivery O2 Flow Rate FiO2 10/22/17 05:41 97.3 80 18 112/71 (85) 97 Assessment & Plan Problem List: (1) Dementia in other diseases classified elsewhere with behavioral disturbance ICD Codes: F02.81 - Dementia in other diseases classified elsewhere with behavioral disturbance (2) TBI (traumatic brain injury) ICD Codes: S06.9X9A - Unspecified intracranial injury with loss of consciousness of unspecified duration, initial encounter Status: Chronic Assessment & Plan Ongoing behavioral disorganization in the setting of patient's history of dementia associated with traumatic brain injury. Titrate Seroquel to 200 mg twice daily to target this symptom cluster. Continue Depakote and Aricept as ordered. Continue Carnitor for hyperammonemia with plans to recheck ammonia level later in the week. Encourage hydration and Biotene as needed for dry mouth. I will request a neurological consultation to ensure there is not an underlying neurological cause for patient's ongoing behavioral disorganization given its resistance to treatment so far. Continue to monitor on the inpatient unit. Continue other medications and care as ordered. Justification for Cont. Inpt. Med changes. Impairment in reality construction. Risk for decompensation in less restrictive environment. Discharge Planning Placement once stabilized. Case discussed with counselor. Request HC Surrog/Guard Advoc?: Yes Tay Bourne MD Oct 22, 2017 11:02
[2017-10-22] MEDS: LORazepam 2 MG/ML VIAL IM PRN (14:00)
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
[2017-10-22] MEDS: LORazepam 1 MG TAB PO PRN (14:50)
[2017-10-22] MEDS ORDERED: ZIPRASIDONE MESYLATE 20 MG VIAL IM STA (14:51)
[2017-10-22] MEDS ORDERED: OLANZapine IM 10 MG VIAL IM ONE (17:45)
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
[2017-10-22] MEDS: QUEtiapine FUMARATE 200 MG TAB PO SCH (21:00)
[2017-10-23 05:33] VITALS: BP 117/71; PULSE 66; RESP 18; TEMP 97.7; O2SAT 98
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
[2017-10-23] MEDS: levOCARNitine 10% ORAL SOLN 118 ML BTL PO SCH ×3 (08:28→18:00)
[2017-10-23] MEDS: DIVALPROEX SODIUM E.R. 500 MG TAB PO SCH ×2 (08:29→20:32)
[2017-10-23] MEDS: QUEtiapine FUMARATE 200 MG TAB PO SCH (08:29)
--- NOTE | 2017-10-23 09:36 | EKG ---
Date Performed: 10/22/2017 Time Performed: 20:43:10 PTAGE: 37 years EKG: SINUS BRADYCARDIA BORDERLINE ECG PREVIOUS TRACING : 10/12/2017 09.14 DOCTOR: Edgardo Bellamy Interpretating Date/Time 10/23/2017 09:33:42
[2017-10-23] MEDS ORDERED: GADODIAMIDE PF 287 MG/ML 20 ML VIAL (for RAD MRI) IVCONTRAST ONE (10:39)
--- NOTE | 2017-10-23 11:09 | RADRPT ---
EXAM DATE/TIME: 10/23/2017 10:20 [facility] COMPARISON: MRI BRAIN W & W/O CONTRAST, October 15, 2016, 10:40. INDICATIONS : Psychosis. CONTRAST: 16 cc Omniscan (gadodiamide) IV MEDICAL HISTORY : TBI x2 SURGICAL HISTORY : Lt arm surgery ENCOUNTER: Subsequent ACUITY: 2 weeks PAIN SCORE: 0/10 LOCATION: cranial TECHNIQUE: Multiplanar, multisequence MRI of the brain was performed both prior to and following the administrat ion of paramagnetic contrast. FINDINGS: CEREBRUM: Para areas of encephalomalacia throughout the right frontal lobe both superiorly and laterally, uncha nged . The ventricles are normal for age. No evidence of midline shift, mass lesion, hemorrhage or acute infarction. No extraaxial fluid collections are seen. The pituitary gland and suprasellar cis tern are normal in configuration. WHITE MATTER: No significant signal abnormalities are seen in the white matter. POSTERIOR FOSSA: The cerebellum and brainstem are intact. The 4th ventricle is midline. The cerebellopontine angle is unremarkable. The cerebellar tonsils are normal in position. DIFFUSION IMAGING: No focal areas of restricted diffusion are seen. No evidence of acute infarction. EXTRACRANIAL: The visualized portions of the orbits and paranasal sinuses are unremarkable. POST-CONTRAST: No abnormal areas of parenchymal or dural enhancement. No evidence of blood-brain barrier breakdown. CONCLUSION: Stable examination. Areas of encephalomalacia involving the superior right frontal lobe and the later al right frontal lobe unchanged. No evidence of acute stroke. Edgardo Chopra MD on October 23, 2017 at 11:05 Board Certified Radiologist. This report was verified electronically.
[2017-10-23 11:38] LABS: BLOOD, URINE NEG (NEG); COMMENT (UR) CULT NOT INDICATED; CULTURE IF INDICATED CULT NOT INDICATED; GLUCOSE,URINE NEG (NEG); KETONE, URINE NEG (NEG); NITRITE,URINE NEG (NEG); URINE COLOR YELLOW (YELLW/STRAW)
[2017-10-23] MEDS ORDERED: OLANZapine IM 10 MG VIAL IM STA (12:24)
--- NOTE | 2017-10-23 14:33 | HHI.PR ---
Review/Management Diagnosis 1. History of TBI. 2. Dementia with behavioral disturbances as stated in the medical records However, the right frontal lesion may contribute to behavioral changes Plan - A follow up MRI brain did not revealed any acute intracranial abnormality - Needs formal neuro-cognitive assessment. - Neurologic exam is nonfocal - The patient may follow up as outpatient with his neurologist, . - Continue current psychotropic medication and psychotherapy - No need for further neurologic work up Diagnosis/Plan: Subjective Subjective Comments A review of the MRI brain w & w/o contrast revealed no acute intracranial abnormality Active Medications Current Medications Medications (Trade) Dose Ordered Sig/Ju Route Start Time Stop Time Status Last Admin (Ativan) 1 mg Q6H PRN PO 10/11/17 10:45 10/22/17 14:50 (Ativan Inj) 1 mg Q6H PRN IM 10/11/17 10:45 10/22/17 14:00 (Tylenol) 650 mg Q4H PRN PO 10/11/17 10:45 (Milk Of Magnesia Liq) 30 ml DAILY PRN PO 10/11/17 10:45 (Mag-Al Plus Susp Liq) 30 ml Q6H PRN PO 10/11/17 10:45 (Depakote Er) 500 mg BID PO 10/12/17 14:30 Future hold 10/23/17 08:29 (Carnitor 10% Liq) 3 ml TID PO 10/21/17 18:00 10/23/17 08:28 (Pill Splitter) 1 ea UNSCH PRN OTHER 10/21/17 15:00 (SEROquel) 300 mg BID PO 10/23/17 21:00 Allergies Allergies Coded Allergies No Known Allergies ([id number]/13/16) Review of Systems All other ROS: ROS reviewed as documented in chart Exam I&O / VS Vital Signs Date Time Temp Pulse Resp B/P (MAP) Pulse Ox O2 Delivery O2 Flow Rate FiO2 10/23/17 05:33 97.7 66 18 117/71 (86) 98 Objective Radiology Results Last 72 hours Impressions Brain MRI 10/23/17 0000 Signed Impressions: Service Date/Time: Saturday, October 23, 2017 10:20 - CONCLUSION: Stable examination. Areas of encephalomalacia involving the superior right frontal lobe and the lateral right frontal lobe unchanged. No evidence of acute stroke. Edgardo Cohpra MD Micro and Labs Laboratory Tests Test 10/23/17 11:28 Urine Color YELLOW Urine Turbidity CLEAR Urine pH 8.0 Urine Specific [place] 1.018 Urine Protein NEG Urine Glucose (UA) NEG Urine Ketones NEG Urine Occult Blood NEG Urine Nitrite NEG Urine Bilirubin NEG Urine Urobilinogen LESS THAN 2.0 Urine Leukocyte Esterase NEG Urine WBC 1 Microscopic Urinalysis Comment CULT NOT INDICATED Jose Carpenter MD Oct 23, 2017 14:33
[2017-10-23 18:16] VITALS: BP 122/74; PULSE 81; RESP 18; TEMP 97.9; O2SAT 99
[2017-10-23 20:15] LABS: AUTOMATED NEUTROPHIL # 3.3 TH/MM3 (1.8-7.7); BASOPHIL # 0.1 TH/MM3 (0-0.2); BASOPHIL % 0.7 % (0.0-2.0); EOSINOPHIL # 0.2 TH/MM3 (0-0.4); EOSINOPHIL % 3.6 % (0.0-4.0); HEMATOCRIT 41.5 % (39.0-51.0); HEMO FLAGS DIFF FINAL; LYMPHOCYTE # 2.7 TH/MM3 (1.0-4.8); MEAN CELL VOLUME 84.5 FL (80.0-100.0); MEAN CORPUSCULAR HEMOGLOBIN 30.1 PG (27.0-34.0); MEAN CORPUSCULAR HGB CONC 35.7 % (32.0-36.0); MONO % 9.7 % (0.0-8.0); PLATELET COUNT 219 TH/MM3 (150-450); RED CELL DISTRIBUTION WIDTH 12.8 % (11.6-17.2); WHITE BLOOD COUNT 6.9 TH/MM3 (4.0-11.0)
[2017-10-23] MEDS: QUEtiapine FUMARATE 100 MG TAB PO SCH (20:32)
[2017-10-23 20:33] LABS: ANION GAP 6 MEQ/L (5-15); BICARBONATE 28.7 MEQ/L (21.0-32.0); BLOOD UREA NITROGEN 13 MG/DL (7-18); CHLORIDE 105 MEQ/L (98-107); GLOMERULAR FILTRATION RATE 88 ML/MIN (>89); POTASSIUM 4.1 MEQ/L (3.5-5.1); SODIUM (NA) 140 MEQ/L (136-145)
[2017-10-23 20:35] LABS: ALT (GPT) 23 U/L (12-78); AST (GOT) 10 U/L (15-37)
[2017-10-23 20:37] LABS: ALKALINE PHOSPHATASE 71 U/L (45-117); TOTAL BILIRUBIN ADULT 0.3 MG/DL (0.2-1.0)
[2017-10-24 05:37] VITALS: BP 116/79; PULSE 89; RESP 16; TEMP 97.3; O2SAT 98
[2017-10-24] MEDS: DIVALPROEX SODIUM E.R. 500 MG TAB PO SCH ×2 (08:02→20:34)
[2017-10-24] MEDS: QUEtiapine FUMARATE 100 MG TAB PO SCH ×2 (08:02→20:34)
[2017-10-24] MEDS: levOCARNitine 10% ORAL SOLN 118 ML BTL PO SCH ×3 (09:00→16:24)
--- NOTE | 2017-10-24 11:22 | HHI.PYPN ---
Subjective Remarks Patient was seen today for psychiatric reevaluation, case discussed with nursing charge, chart reviewed. Patient is eating his breakfast, he reports he feels okay, he denies depressive symptoms, he says that he has been doing fine, he is confused and partially disoriented, as he is eating his breakfast he is entering the wood inside a coffee "to make coffee more street". Patient has been compliant with medications, no significant side effects reported. No agitation or aggressive behavior in the last 24 hours. Neurology is input appreciated: 1. History of TBI. 2. Dementia with behavioral disturbances as stated in the medical records. However, the right frontal lesion may contribute to behavioral changes - A follow up MRI brain did not revealed any acute intracranial abnormality - Needs formal neuro-cognitive assessment. - Neurologic exam is nonfocal - The patient may follow up as outpatient with his neurologist, . - Continue current psychotropic medication and psychotherapy - No need for further neurologic work up Review of Systems Except as stated in HPI: all other systems reviewed are Neg Mental Status Examination Appearance: Appropriate Consciousness: Alert Orientation: Person, Place Motor Activity: Normal gait, Other (no abnormal motor movements noted) Speech: Unremarkable Language: Neologism, Perseveration Fund of Knowledge: Inadequate Attention and Concentration: Easily Distracted Memory: Impaired (impaired on clinical examination) Mood: Irritable Affect: Irritable Thought Process & Associations: Circumstantial, Tangential Thought Content: Bizarre thinking, Delusional Hallucination Type: None, Other (internally preoccupied) Delusion Type: Paranoid Suicidal Ideation: No (unreliable to contract for safety) Homicidal Ideation: No (unreliable to contract for safety) Insight: Poor Judgment: Poor Results Labs Test 10/23/17 11:28 10/23/17 19:55 Urine Color YELLOW Urine Turbidity CLEAR Urine pH 8.0 Urine Specific [place] 1.018 Urine Protein NEG mg/dL Urine Glucose (UA) NEG mg/dL Urine Ketones NEG mg/dL Urine Occult Blood NEG Urine Nitrite NEG Urine Bilirubin NEG Urine Urobilinogen LESS THAN 2.0 MG/DL Urine Leukocyte Esterase NEG Urine WBC 1 /hpf Microscopic Urinalysis Comment CULT NOT INDICATED White Blood Count 6.9 TH/MM3 Red Blood Count 4.90 MIL/MM3 Hemoglobin 14.8 GM/DL Hematocrit 41.5 % Mean Corpuscular Volume 84.5 FL Mean Corpuscular Hemoglobin 30.1 PG Mean Corpuscular Hemoglobin Concent 35.7 % Red Cell Distribution Width 12.8 % Platelet Count 219 TH/MM3 Mean Platelet Volume 7.8 FL Neutrophils (%) (Auto) 47.0 % Lymphocytes (%) (Auto) 39.0 % Monocytes (%) (Auto) 9.7 % Eosinophils (%) (Auto) 3.6 % Basophils (%) (Auto) 0.7 % Neutrophils # (Auto) 3.3 TH/MM3 Lymphocytes # (Auto) 2.7 TH/MM3 Monocytes # (Auto) 0.7 TH/MM3 Eosinophils # (Auto) 0.2 TH/MM3 Basophils # (Auto) 0.1 TH/MM3 CBC Comment DIFF FINAL Differential Comment Blood Urea Nitrogen 13 MG/DL Creatinine 0.97 MG/DL Random Glucose 90 MG/DL Total Protein 6.2 GM/DL Albumin 3.2 GM/DL Calcium Level 8.4 MG/DL Alkaline Phosphatase 71 U/L Aspartate Amino Transf (AST/SGOT) 10 U/L Alanine Aminotransferase (ALT/SGPT) 23 U/L Total Bilirubin 0.3 MG/DL Sodium Level 140 MEQ/L Potassium Level 4.1 MEQ/L Chloride Level 105 MEQ/L Carbon Dioxide Level 28.7 MEQ/L Anion Gap 6 MEQ/L Estimat Glomerular Filtration Rate 88 ML/MIN Ammonia 59 MCMOL/L Valproic Acid (Depakene) Level 36 MCG/ML Vitals/IOs Vital Signs Date Time Temp Pulse Resp B/P (MAP) Pulse Ox O2 Delivery O2 Flow Rate FiO2 10/24/17 05:37 97.3 89 16 116/79 (91) 98 Assessment & Plan Problem List: (1) Dementia in other diseases classified elsewhere with behavioral disturbance ICD Codes: F02.81 - Dementia in other diseases classified elsewhere with behavioral disturbance Assessment & Plan: Continue current psychotropic regimen. (2) TBI (traumatic brain injury) ICD Codes: S06.9X9A - Unspecified intracranial injury with loss of consciousness of unspecified duration, initial encounter Status: Chronic Assessment & Plan Estimated LOS: days Justification for Cont. Inpt. Patient has an elevated risk to decompensate at a lower level of care. Request HC Surrog/Guard Advoc?: Yes Problem Qualifiers (1) TBI (traumatic brain injury): Qualified Codes: S06.9X9S - Unspecified intracranial injury with loss of consciousness of unspecified duration, sequela Fam,Levi B. MD Oct 24, 2017 11:22
[2017-10-24 17:12] VITALS: BP 127/73; PULSE 69; RESP 16; TEMP 97.3; O2SAT 98
[2017-10-25 06:16] VITALS: BP 120/67; PULSE 75; RESP 17; TEMP 97.5; O2SAT 99
[2017-10-25] MEDS: QUEtiapine FUMARATE 100 MG TAB PO SCH ×2 (08:14→20:24)
[2017-10-25] MEDS: DIVALPROEX SODIUM E.R. 500 MG TAB PO SCH (08:14)
[2017-10-25] MEDS: levOCARNitine 10% ORAL SOLN 118 ML BTL PO SCH ×3 (08:14→17:09)
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
[2017-10-25 16:39] VITALS: BP 124/82; PULSE 96; RESP 18; TEMP 98; O2SAT 97
[2017-10-25] MEDS: DIVALPROEX SODIUM E.R. 250 MG TAB PO SCH (20:24)
[2017-10-26 05:42] VITALS: BP 121/75; PULSE 91; RESP 18; TEMP 97.6; O2SAT 98
[2017-10-26] MEDS: levOCARNitine 10% ORAL SOLN 118 ML BTL PO SCH ×3 (08:22→16:56)
[2017-10-26] MEDS: QUEtiapine FUMARATE 100 MG TAB PO SCH ×2 (08:23→20:30)
[2017-10-26] MEDS: DIVALPROEX SODIUM E.R. 250 MG TAB PO SCH ×2 (08:24→20:30)
--- NOTE | 2017-10-26 14:02 | HHI.PYPN ---
Subjective Remarks Patient was seen and case discussed with nursing. Patient continues to improve. Staff note marketed difference compared to admission. Is no longer psychotic and denies any auditory visual hallucinations or paranoia. No ideas of reference. Tolerating medications well. Denies suicidal or homicidal ideations intent or plan. No aggressive behaviors. Eating and sleeping well Mental Status Examination Appearance: Appropriate Consciousness: Alert Orientation: Person, Place (at least), Date/Time Motor Activity: Normal gait, Other (no motor abnormalities noted) Speech: Unremarkable Language: Adequate Fund of Knowledge: Adequate Attention and Concentration: Easily Distracted Memory: Impaired (remains somewhat impaired on clinical exam) Mood: Other (calm) Affect: Blunt Thought Process & Associations: Circumstantial Thought Content: Bizarre thinking (but more appropriate overall) Hallucination Type: None Delusion Type: None Suicidal Ideation: No Suicidal Plan: No Suicidal Intention: No Homicidal Ideation: No Homicidal Plan: No Homicidal Intention: No Insight: Poor Judgment: Poor Results Vitals/IOs Vital Signs Date Time Temp Pulse Resp B/P (MAP) Pulse Ox O2 Delivery O2 Flow Rate FiO2 10/26/17 05:42 97.6 91 18 121/75 (90) 98 Assessment & Plan Problem List: (1) Dementia in other diseases classified elsewhere with behavioral disturbance ICD Codes: F02.81 - Dementia in other diseases classified elsewhere with behavioral disturbance (2) TBI (traumatic brain injury) ICD Codes: S06.9X9A - Unspecified intracranial injury with loss of consciousness of unspecified duration, initial encounter Status: Chronic Assessment & Plan Continue current treatment plan Justification for Cont. Inpt. Patient will decompensate in a less restrictive setting Request HC Surrog/Guard Advoc?: Yes Problem Qualifiers (1) TBI (traumatic brain injury): Qualified Codes: S06.9X9S - Unspecified intracranial injury with loss of consciousness of unspecified duration, sequela Ryne Rodrigues DO Oct 26, 2017 14:02
[2017-10-26 18:35] VITALS: BP 114/62; PULSE 116; RESP 18; TEMP 98.1; O2SAT 98
[2017-10-27 05:55] VITALS: BP 124/70; PULSE 63; RESP 17; TEMP 97.8; O2SAT 99
[2017-10-27] MEDS: levOCARNitine 10% ORAL SOLN 118 ML BTL PO SCH ×3 (08:54→17:35)
[2017-10-27] MEDS: DIVALPROEX SODIUM E.R. 250 MG TAB PO SCH ×2 (08:54→21:48)
[2017-10-27] MEDS: QUEtiapine FUMARATE 100 MG TAB PO SCH ×2 (08:54→21:48)
--- NOTE | 2017-10-27 12:27 | HHI.PYPN ---
Subjective Remarks Patient was seen and case discussed with nursing. Patient continues to improve. Eating and sleeping well. Denies psychotic symptoms. Behaving well on the unit. Compliant with medications. no complaints today Mental Status Examination Appearance: Appropriate Consciousness: Alert Orientation: Person, Place (at least), Date/Time Motor Activity: Normal gait, Other (no motor abnormalities noted) Speech: Unremarkable Language: Adequate Fund of Knowledge: Adequate Attention and Concentration: Easily Distracted Memory: Impaired (remains somewhat impaired on clinical exam) Mood: Other (calm) Affect: Blunt Thought Process & Associations: Circumstantial Thought Content: Bizarre thinking (but more appropriate overall) Hallucination Type: None Delusion Type: None Suicidal Ideation: No Suicidal Plan: No Suicidal Intention: No Homicidal Ideation: No Homicidal Plan: No Homicidal Intention: No Insight: Poor Judgment: Poor Results Vitals/IOs Vital Signs Date Time Temp Pulse Resp B/P (MAP) Pulse Ox O2 Delivery O2 Flow Rate FiO2 10/27/17 05:55 97.8 63 17 124/70 (88) 99 Assessment & Plan Problem List: (1) Dementia in other diseases classified elsewhere with behavioral disturbance ICD Codes: F02.81 - Dementia in other diseases classified elsewhere with behavioral disturbance (2) TBI (traumatic brain injury) ICD Codes: S06.9X9A - Unspecified intracranial injury with loss of consciousness of unspecified duration, initial encounter Status: Chronic Assessment & Plan Continue current treatment plan Justification for Cont. Inpt. Patient would decompensate in a less restrictive setting Request HC Surrog/Guard Advoc?: Yes Problem Qualifiers (1) TBI (traumatic brain injury): Qualified Codes: S06.9X9S - Unspecified intracranial injury with loss of consciousness of unspecified duration, sequela Ryne Rodrigues DO Oct 27, 2017 12:26
[2017-10-27 17:24] VITALS: BP 149/99; PULSE 85; RESP 17; TEMP 98.1; O2SAT 98
[2017-10-28 06:02] VITALS: BP 121/62; PULSE 76; RESP 16; TEMP 97.5; O2SAT 100
[2017-10-28] MEDS: DIVALPROEX SODIUM E.R. 250 MG TAB PO SCH ×2 (08:40→21:20)
[2017-10-28] MEDS: QUEtiapine FUMARATE 100 MG TAB PO SCH (08:40)
[2017-10-28] MEDS: levOCARNitine 10% ORAL SOLN 118 ML BTL PO SCH ×3 (08:42→15:58)
--- NOTE | 2017-10-28 10:04 | HHI.PYPN ---
Subjective Remarks Patient seen and examined with nurse. Chart reviewed. Case discussed with nursing staff. No behavioral issues noted overnight. On my examination today, the patient is calm and cooperative. He denies any SI, HI or AVH. Mood is stable. Denies side effects from medications besides some constipation. Last bowel movement was yesterday. Still passing flatus. No other physical complaints. Patient's mother and healthcare surrogate called in. She notes that the patient is improving but continues to have some psychotic symptoms. In particular, she notes that their visits go well for about 25 or 30 minutes or so at which point the patient will decide that family member is an impostor and requests to be returned to the unit. Review of Systems ROS Limitations: Psychotic, Poor Historian Except as stated in HPI: all other systems reviewed are Neg Mental Status Examination Appearance: Appropriate Consciousness: Alert Orientation: Person, Place (at least) Motor Activity: Normal gait, Other (no abnormal motor movements noted) Speech: Unremarkable Language: Adequate Fund of Knowledge: Adequate Attention and Concentration: Easily Distracted Memory: Impaired (remains somewhat impaired on clinical exam) Mood: Other (calm) Affect: Euthymic Thought Process & Associations: Circumstantial Thought Content: Bizarre thinking (at times) Hallucination Type: None Delusion Type: Other (?[place]) Suicidal Ideation: No Suicidal Plan: No Suicidal Intention: No Homicidal Ideation: No Homicidal Plan: No Homicidal Intention: No Insight: Poor Judgment: Poor Results Labs Test 10/28/17 07:08 Ammonia 33 MCMOL/L Valproic Acid (Depakene) Level 71 MCG/ML Labs reviewed. Depakote level comfortably within the therapeutic range. Ammonia level trending downward. Vitals/IOs Vital Signs Date Time Temp Pulse Resp B/P (MAP) Pulse Ox O2 Delivery O2 Flow Rate FiO2 10/28/17 06:02 97.5 76 16 121/62 (81) 100 Assessment & Plan Problem List: (1) Dementia in other diseases classified elsewhere with behavioral disturbance ICD Codes: F02.81 - Dementia in other diseases classified elsewhere with behavioral disturbance (2) TBI (traumatic brain injury) ICD Codes: S06.9X9A - Unspecified intracranial injury with loss of consciousness of unspecified duration, initial encounter Status: Chronic Assessment & Plan Titrate Seroquel to 300 mg in the morning and 400 mg at bedtime to target residual psychotic symptoms. Continue Depakote and Carnitor as ordered. I will add a bowel regimen. Continue to monitor on the inpatient unit. Continue other medications and care as ordered. Justification for Cont. Inpt. Med changes. Some impairment in reality construction still. High risk for decompensation in less restrictive environment. Discharge Planning Plan is for placement. Case discussed with counselor. Request HC Surrog/Guard Advoc?: Yes Problem Qualifiers (1) TBI (traumatic brain injury): Qualified Codes: S06.9X9S - Unspecified intracranial injury with loss of consciousness of unspecified duration, sequela Tay Bourne MD Oct 28, 2017 10:04
[2017-10-28] MEDS ORDERED: BISACODYL EC 5 MG TABEC PO PRN (12:30)
[2017-10-28] MEDS: DOCUSATE SODIUM 100 MG CAP PO SCH ×2 (12:30→21:20)
[2017-10-28 18:27] VITALS: BP 118/64; PULSE 89; RESP 16; TEMP 97.5; O2SAT 100
[2017-10-28] MEDS: QUEtiapine FUMARATE 200 MG TAB PO SCH (21:19)
[2017-10-29 05:45] VITALS: BP 117/72; PULSE 100; RESP 16; TEMP 97.7; O2SAT 96
[2017-10-29] MEDS: DIVALPROEX SODIUM E.R. 250 MG TAB PO SCH ×2 (08:55→21:14)
[2017-10-29] MEDS: DOCUSATE SODIUM 100 MG CAP PO SCH ×2 (08:56→21:14)
[2017-10-29] MEDS: QUEtiapine FUMARATE 100 MG TAB PO SCH (08:56)
[2017-10-29] MEDS: levOCARNitine 10% ORAL SOLN 118 ML BTL PO SCH ×3 (08:57→16:39)
--- NOTE | 2017-10-29 10:22 | PD.TTN ---
Patient Problems 1. Discharge planning 2. Medication compliance 3. Knowledge deficit 4. Lack of coping skills Progress Toward Goals Provider Present: Dr. Abran Bourne Provider Input: Pt medication regiment will not be adjusted today though a Depakote level has been ordered and changes may be made depending on these results. 10/18- Pt medication regiment has been adjusted including addition of Seroquel. Pt has been referred for placement at an [facility]. 10/22- Pt medication regiment is being adjusted including medical meds as well as Aricept which is being titrated. 10/29- Pt medication regiment is not being changed today but will continue to be evaluated. Pt is showing progress on unit. Nurse(s) Present: Dilan Mirza RN Nurse(s) Input: Pt appears bizarre, incoherent at times, medication compliant, pleasant and has been no behavioral issue on unit. 10/18- Aaliyah Hi RN Pt appears calm, medication compliant, and denies symptoms but presents as preoccpied. Pt was found to have thrown his pee in his room last night. 10/22- Darya Townsend RN Pt has been medication compliant, is no behavioral issues and displays no overt symptoms. 10/29- Fawn Payne RN Pt appears sweet, calm, cooperative, appropriate, organized, oriented and medication compliant. He has been completing ADLs and is eating well. Psychiatric Counselors Present: Prudencio Nguyen [facility] Psych Therapist Input: Pt remains confused, disorganized and struggles with clarity at times but remains cooperative and appropriate. He has been observed to be wandering the unit and with some bizarre behaviors but is visible. He is interacting well with peers and staff. Pt presents with limited insight into condition and need for care as evidenced by chronic noncompliance with medication regiment. Pt appears to be utilizing coping and emotional regulation skills as evidenced by lack of outbursts on unit. Pt has been compliant with regiment on unit. Family is working to place pt at [facility] if possible. 10/18- Pt continues to appear bizarre, preoccupied, withdrawn to self, cooperative and appropriate. Pt presents with ongoing thought disturbance and bizarre behavior. Insight remains poor into condition and need for care. He appears to be utilizing some level of coping and emotional regulation skills as he has had no outbursts. 10/22- Pt continues to appear easily agitated, disorganized, appropriate and cooperative. He presents with limited insight into condition and need for care. Pt is medication compliant. Pt struggles with emotional regulation and coping skills as evidenced by outbursts on unit. 10/29- Pt appears calm, cooperative, appropriate, organized and oriented. He shows significant progress behaviorally and in clarity of thought. He is compliant with medication regiment and reports he feels that it is helping. Pt appears to show improvement in his coping and emotional regulation skills as he has had no further outbursts. Insight into condition and need for care appears to be improving as well. Group Spec/RT/OT/SCOTT Present: Joselin Deluna, GABE, SONIA Renee Group Spec/RT/OT/SCOTT Input: Pt does not attend groups. 10/18- Pt has been attending groups and participating in group activities. No behaviors to note. 10/22- Pt attends 50% of groups. 10/29- Joseluis Workman, OT Pt attends groups and has been increasingly appropriate lately Discharge Plan SMA Pt will be referred to [facility] and will be evaluated for possibility of admission. Follow up would come from facility providers. Documentation Scribe: ROBERT Silver Jonathan LM[facility] Oct 29, 2017 10:22
--- NOTE | 2017-10-29 10:40 | HHI.PYPN ---
Subjective Remarks Patient seen and examined with nurse. Chart reviewed. Case discussed in treatment team. Nurse reports that the patient is doing very well on the unit. Counselor reports that [facility] will accept the patient tomorrow. Facility is requesting screening chest x-ray, which I will order. On my examination today, the patient is in good spirits. I discussed his mother's report of possible Capgr[place], and patient admits that he became suspicious that his mother was an imposter because of the leg-warmers she was reportedly wearing. He is readily re-oriented to reality and accepts that person visiting him was, in fact , his mother. He denies any SI or HI. Denies side effects from medications. No physical complaints. Review of Systems Except as stated in HPI: all other systems reviewed are Neg Mental Status Examination Appearance: Appropriate Consciousness: Alert Orientation: Person, Place Motor Activity: Other (no motor abnormalities noted) Speech: Unremarkable Language: Adequate Fund of Knowledge: Adequate Attention and Concentration: Adequate Memory: Impaired (fair on clinical exam) Mood: Good, Other (calm) Affect: Euthymic Thought Process & Associations: Linear Thought Content: Bizarre thinking (mild) Hallucination Type: None Delusion Type: Other (?Capgras, easily reoriented to reality) Suicidal Ideation: No Suicidal Plan: No Suicidal Intention: No Homicidal Ideation: No Homicidal Plan: No Homicidal Intention: No Insight: Poor Judgment: Poor Results Labs Labs reviewed. No new labs. Vitals/IOs Vital Signs Date Time Temp Pulse Resp B/P (MAP) Pulse Ox O2 Delivery O2 Flow Rate FiO2 10/29/17 05:45 97.7 100 16 117/72 (87) 96 Intake and Output 10/29/17 10/29/17 10/30/17 08:00 16:00 00:00 Intake Total 240 ml Balance 240 ml Assessment & Plan Problem List: (1) Dementia in other diseases classified elsewhere with behavioral disturbance ICD Codes: F02.81 - Dementia in other diseases classified elsewhere with behavioral disturbance (2) TBI (traumatic brain injury) ICD Codes: S06.9X9A - Unspecified intracranial injury with loss of consciousness of unspecified duration, initial encounter Status: Chronic Assessment & Plan Patient's presenting psychiatric symptomatology seems to have stabilized nicely with current regimen. Continue current psychotropics as ordered. I will order screening chest x-ray as requested by facility. Continue to monitor on the inpatient unit. Continue other medications and care as ordered. Justification for Cont. Inpt. Final discharge planning Discharge Planning Anticipate discharge tomorrow, Saturday. Request HC Surrog/Guard Advoc?: Yes Problem Qualifiers (1) TBI (traumatic brain injury): Qualified Codes: S06.9X9S - Unspecified intracranial injury with loss of consciousness of unspecified duration, sequela Tay Bourne MD Oct 29, 2017 10:40
[2017-10-29 18:13] VITALS: BP 127/81; PULSE 92; RESP 18; TEMP 97.3; O2SAT 99
--- NOTE | 2017-10-29 20:38 | RADRPT ---
EXAM DATE/TIME: 10/29/2017 20:08 [place] COMPARISON: CHEST SINGLE AP, October 16, 2016, 9:29. INDICATIONS : Cough. MEDICAL HISTORY : TBI x2 SURGICAL HISTORY : left humerus surgery ENCOUNTER: Initial ACUITY: 1 day PAIN SCORE: 0/10 LOCATION: Bilateral chest FINDINGS: A single view of the chest demonstrates the lungs to be symmetrically aerated without evidence of mas s, infiltrate or effusion. The cardiomediastinal contours are unremarkable. Osseous structures are intact with previous robi fixation left humerus. CONCLUSION: No acute disease. Kaiser Morgan MD on October 29, 2017 at 20:35 Board Certified Radiologist. This report was verified electronically.
[2017-10-29] MEDS: QUEtiapine FUMARATE 200 MG TAB PO SCH (21:14)
[2017-10-30 05:50] VITALS: BP 125/73; PULSE 103; RESP 18; TEMP 97.7; O2SAT 97
[2017-10-30] MEDS: QUEtiapine FUMARATE 100 MG TAB PO SCH (07:58)
[2017-10-30] MEDS: DIVALPROEX SODIUM E.R. 250 MG TAB PO SCH (07:59)
[2017-10-30] MEDS: DOCUSATE SODIUM 100 MG CAP PO SCH (07:59)
[2017-10-30] MEDS: levOCARNitine 10% ORAL SOLN 118 ML BTL PO SCH (08:00)
[2017-10-30] MEDS ORDERED: DIVA250ER PO (10:02)
[2017-10-30] MEDS ORDERED: QUET1TAB9 PO (10:02)
[2017-10-30] MEDS ORDERED: LEVO10%S PO (10:02)
[2017-10-30] MEDS ORDERED: QUET1TAB8 PO (10:02)
[2017-10-30] MEDS ORDERED: DOCU1CAP39 PO (10:02)
--- NOTE | 2017-10-30 10:02 | HHI.DS ---
Psychiatry Discharge Summary Inpatient Psychiatric care?: Yes Advance Directive: No Reason Not Provided: Due to Patient Condition Mental Health AdvanceDirective: No Health Care Proxy: No Admission Admission Date Oct 11, 2017 at 10:43 Admission Diagnosis: (1) Dementia in other diseases classified elsewhere with behavioral disturbance ICD Code: F02.81 - Dementia in other diseases classified elsewhere with behavioral disturbance (2) History of traumatic brain injury ICD Code: Z87.820 - Personal history of traumatic brain injury Brief History 37-year-old male brought in under a Tanner act for bizarre and inappropriate behavior. According to the Tanner act, the patient has been having emotional outbursts. The police have been called several times in the past due to the patient's "mental breakdowns". He was not violent last night but he told law enforcement that he was feeling down. He also indicated to law enforcement and to the physician and our emergency department that he has been off his medication for several months. This was confirmed by his mother, who reportedly works at [employer]. In the emergency department, the patient was observed to be acting in an erratic fashion and was wandering the unit. He required frequent redirection and was felt to be psychotic by the attending physician. He was unable to communicate whether he was suicidal or homicidal. When he got to the [facility] psychiatric unit, he was observed to drink his own urine, become angry and violent, throwing a Gatorade plastic bottle against the wall. At the time of this evaluation, the patient remains confused, disorganized and a poor historian. He would like to be admitted and he would like to "change his diaper". (Patient noted not to be wearing a diaper.) Tobacco Use In Past 30 Days: No Tobacco Past 30 Days Alcohol Use: Never Hospital Course Patient was admitted to a locked, inpatient psychiatric unit. A general medical and neurological consultation were obtained. Appropriate precautions were in place throughout patient's hospital stay. Patient was seen and examined on the unit by psychiatry and also visited by counselor. Psychotropic medications were adjusted. Patient seemed to experience worsening of his symptoms when Aricept was titrated and experienced the most improvement when Aricept was discontinued and Depakote was titrated along with Seroquel. Patient 's behavior improved with the benefit of psychopharmacologic treatment and there was no evidence of any suicidality or homicidality on the inpatient unit. Collateral information was obtained from patient's mother. Counselor has arranged for placement in assisted living facility. On the day of discharge: Patient seen and examined. Chart reviewed. Case discussed with nursing staff. No behavioral issues noted overnight. Case discussed with counselor. Patient may go to [facility] today. On my examination today, the patient is in good spirits. He is looking forward to discharge to [facility] today. He denies any suicidal or homicidal ideation, intent or plan on direct questioning and contracts for safety. Mood is good and I can elicit no depressive or hypomanic/manic symptoms. He denies any audiovisual hallucinations. No delusional material elicited. He denies side effects from medications. No physical complaints. Suicide and violence risk assessment on discharge both suggest lower imminent risk, and the patient's level of function is adequate for planned level of outpatient care. I do suspect that there is a component of chronic risk related to executive dysfunction from patient's frontal lobe lesion, but this risk would not be ameliorated by a longer inpatient psychiatric hospital stay. Patient will be discharged today to facility with psychiatric follow-up as arranged by counselor. Patient is also to follow-up with primary care, neurology and neuropsychology for neuropsychological assessment as recommended by neurological [employer] consultant. I have counseled the patient regarding warning signs for need to return to the psychiatric emergency room as part of the general safety plan. Results Blood Pressure 125 / 73 Vital Signs Date Time Temp Pulse Resp B/P (MAP) Pulse Ox O2 Delivery O2 Flow Rate FiO2 10/30/17 05:50 97.7 103 18 125/73 (90) 97 Laboratory Tests Test 10/28/17 07:08 Ammonia 33 MCMOL/L (11-32) Laboratory Results Test 10/12/17 06:20 10/28/17 07:08 Cholesterol Level 97 MG/DL (120-200) HDL Cholesterol 45.1 MG/DL (40.0-60.0) Hemoglobin A1c 5.4 % (4.3-6.0) LDL Cholesterol 38 MG/DL (0-99) Triglycerides Level 69 MG/DL (42-150) Valproic Acid (Depakene) Level 71 MCG/ML (50-100) Summary of Procedures EEG read as normal. Imaging Last Impressions Chest X-Ray 10/29/17 0000 Signed Impressions: Service Date/Time: Sunday, October 29, 2017 20:08 - CONCLUSION: No acute disease. Kaiser Morgan MD Brain MRI 10/23/17 0000 Signed Impressions: Service Date/Time: Monday, October 23, 2017 10:20 - CONCLUSION: Stable examination. Areas of encephalomalacia involving the superior right frontal lobe and the lateral right frontal lobe unchanged. No evidence of acute stroke. Edgardo Chopra MD Pending results at discharge: No Medications # of Antipsychotic meds at D/C: 1 Approp Antipsych med options 1 - Minimum of three failed multiple trials of monotherapy. 2 - Documented plan to taper to monotherapy due to previous use of multiple meds OR cross-taper in progress at D/C. 3 - Documentation of augmentation of Clozapine. 4 - Justification other than those listed in allowable values 1-3, document here : Discharge Discharge Date: Oct 30, 2017 Discharge Diagnosis: (1) Dementia in other diseases classified elsewhere with behavioral disturbance Diagnosis: Principal (behavioral disturbance now resolved) ICD Code: F02.81 - Dementia in other diseases classified elsewhere with behavioral disturbance (2) TBI (traumatic brain injury) Diagnosis: Secondary ICD Code: S06.9X9A - Unspecified intracranial injury with loss of consciousness of unspecified duration, initial encounter Status: Chronic Pt Condition on Discharge: Stable Discharge Disposition: ACLF/CHEPE Discharge Instructions Diet Instructions: As Tolerated, No Restrictions Activities you can perform: Weight Bearing as [place]um[place] Scheduled Appointment: as per counselor's notes New Orders: AMMONIA - 1 Week DEPAKENE - 1 Week New Medications: Divalproex ER (Depakote ER) 250 Mg Eb 750 MG PO BID for Mental Health for 15 Days, #90 TAB 1 Refill Docusate Sodium (Dok) 100 Mg Cap 100 MG PO BID for Constipation for 15 Days, #30 CAP 1 Refill Levocarnitine Liq (Carnitor Liq) 1 Gm/10 Ml Soln 6 ML PO TID for Hyperammonemia for 15 Days, ML 1 Refill Quetiapine (Quetiapine) 100 Mg Tab 300 MG PO DAILY for Mental Health for 15 Days, #45 TAB 1 Refill Quetiapine (Quetiapine) 200 Mg Tab 400 MG PO HS for Mental Health for 15 Days, TAB 1 Refill Discontinued Medications: Divalproex DR (Divalproex DR) 500 Mg Tabdr 500 MG PO BID, #60 TAB Donepezil (Donepezil) 10 Mg Tab 10 MG PO HS for Dementia, #30 TAB 0 Refills Discharge Time <= 30 minutes Mental Status Examination Appearance: Appropriate Consciousness: Alert Orientation: Person, Place, Date/Time (approximate) Motor Activity: Other (No abnormal motor movements noted) Speech: Unremarkable Language: Adequate Fund of Knowledge: Adequate Attention and Concentration: Adequate Memory: Impaired (fair on clinical exam) Mood: Appropriate, Good, Other (calm) Affect: Appropriate, Euthymic Thought Process & Associations: Goal directed, Linear Thought Content: Appropriate Hallucination Type: None Delusion Type: None Suicidal Ideation: No Suicidal Plan: No Suicidal Intention: No Homicidal Ideation: No Homicidal Plan: No Homicidal Intention: No Insight: Poor (chronic condition) Judgment: Poor (chronic condition) Discharge/Advance Care Plan Health Problems: (1) Dementia in other diseases classified elsewhere with behavioral disturbance (2) TBI (traumatic brain injury) Goals to promote your health * To prevent worsening of your condition and complications * To maintain your health at the optimal level Directions to meet your goals Take your medications as prescribed Follow your dietary instruction Follow activity as directed Keep your appointments as scheduled Take your immunizations and boosters as scheduled If your symptoms worsen call your PCP, if no PCP go to Urgent Care Center or Emergency Room For 24/06 questions related to your inpatient stay or results of tests pending at discharge, please contact Dr. Tay Bourne at Smoking is Dangerous to Your Health. Avoid second hand smoking Problem Qualifiers (1) TBI (traumatic brain injury): Qualified Codes: S06.9X9S - Unspecified intracranial injury with loss of consciousness of unspecified duration, sequela Tay Bourne MD Oct 30, 2017 10:02
== END 2017-10-30 13:35 | DRG 92 ==
LOC: NEPJ 15:25 → NEDA 10-11 10:43 → H270 10-11 12:10
PROVIDERS: ADMIT Psychiatry & Neurology Psychiatry; ATTEND Psychiatry & Neurology Psychiatry
DX: S06.9X0S Unspecified intracranial injury without loss of consciousness, sequela (principal); F02.81 Dementia in other diseases classified elsewhere, unspecified severity, with behavioral disturbance; G93.89 Other specified disorders of brain; E72.20 Disorder of urea cycle metabolism, unspecified; K59.00 Constipation, unspecified; Z91.14 Patient's other noncompliance with medication regimen; Z87.820 Personal history of traumatic brain injury; V89.2XXS Person injured in unspecified motor-vehicle accident, traffic, sequela
CPT/HCPCS: 70553; 71010; 80053; 80061; 80164; 80307; 81001; 82140; 82306; 82607; 83036; 84443; 85025; 93005; 95819; 96372; A9579; J1200; J2060; J3486

== ENCOUNTER 2017-12-24 12:11 | Emergency (ER) | payer MEDICARE, OTHER ==
[~2017-12-24] VITALS: Ht 172.7 cm; Wt 85.0 kg
[~2017-12-24 12:11] MED LIST changes: -BENZ2TAB PO; +DIVA250ER PO; -DIVA500T PO; +DOCU1CAP39 PO; -DONE10TA7 PO; -HALO1TAB PO; +LEVO10%S PO; +QUET1TAB8 PO; +QUET1TAB9 PO; -VITA100T2 PO
[2017-12-24 12:31] VITALS: BP 119/63; PULSE 125; RESP 22; TEMP 98.5; O2SAT 96
[2017-12-24 12:46] LABS: AUTOMATED NEUTROPHIL # 5.3 TH/MM3 (1.8-7.7); BASOPHIL # 0.1 TH/MM3 (0-0.2); BASOPHIL % 0.7 % (0.0-2.0); EOSINOPHIL # 0.2 TH/MM3 (0-0.4); EOSINOPHIL % 2.6 % (0.0-4.0); HEMATOCRIT 48.2 % (39.0-51.0); HEMOGLOBIN 16.6 GM/DL (13.0-17.0); LYMPHOCYTE # 2.7 TH/MM3 (1.0-4.8); MEAN CELL VOLUME 85.2 FL (80.0-100.0); MEAN CORPUSCULAR HEMOGLOBIN 29.3 PG (27.0-34.0); MEAN CORPUSCULAR HGB CONC 34.3 % (32.0-36.0); MEAN PLATELET VOLUME 7.5 FL (7.0-11.0); MONO % 6.5 % (0.0-8.0); MONOCYTE # 0.6 TH/MM3 (0-0.9); NEUT % 60.2 % (16.0-70.0); PLATELET COUNT 234 TH/MM3 (150-450); RED BLOOD COUNT 5.66 MIL/MM3 (4.50-5.90); RED CELL DISTRIBUTION WIDTH 13.6 % (11.6-17.2); WHITE BLOOD COUNT 8.9 TH/MM3 (4.0-11.0)
[2017-12-24 12:55] VITALS: PULSE 108; RESP 18; O2SAT 98
[2017-12-24 13:09] LABS: ALT (GPT) 23 U/L (12-78); AST (GOT) 15 U/L (15-37); BICARBONATE 25.4 MEQ/L (21.0-32.0); BLOOD UREA NITROGEN 7 MG/DL (7-18); CALCIUM 8.8 MG/DL (8.5-10.1); CHLORIDE 106 MEQ/L (98-107); GLOMERULAR FILTRATION RATE 85 ML/MIN (>89); GLUCOSE,RANDOM 130 MG/DL (74-106); SODIUM (NA) 140 MEQ/L (136-145)
[2017-12-24 13:12] LABS: ALKALINE PHOSPHATASE 78 U/L (45-117); TOTAL BILIRUBIN ADULT 0.5 MG/DL (0.2-1.0); TOTAL PROTEIN 7.5 GM/DL (6.4-8.2)
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
[2017-12-24 18:30] VITALS: BP 109/66; PULSE 87; RESP 20; TEMP 97.3; O2SAT 96
[2017-12-24] MEDS ORDERED: DEPA500T3 PO (19:51)
[2017-12-24] MEDS ORDERED: DIVA250ER PO (19:51)
[2017-12-24 22:10] VITALS: BP 110/68; PULSE 65; RESP 16; TEMP 96.9; O2SAT 98
[2017-12-24] MEDS ORDERED: QUEtiapine FUMARATE 200 MG TAB PO SCH (22:15)
[2017-12-24] MEDS ORDERED: DIVALPROEX SODIUM E.R. 250 MG TAB PO SCH (22:15)
[2017-12-25 02:28] VITALS: BP 115/62; PULSE 74; RESP 16; TEMP 97; O2SAT 97
[2017-12-25 06:18] VITALS: BP 130/70; PULSE 83; RESP 16; TEMP 97.9; O2SAT 98
[2017-12-25 10:24] VITALS: BP 151/63; PULSE 94; RESP 16; O2SAT 96
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
--- NOTE | 2017-12-25 12:24 | PD ---
Physical Exam Narrative I was asked by the psych department to discharge patient after patient was evaluated and Tanner acted lifted by psych. Patient was previously medically cleared by previous provider. Please see their documentation for full H&P. Patient denies any homicidal or suicidal ideations. Denies any medical concerns at this time. Denies any pain or radiation of pain. Denies anything making symptoms better or worse. Data Data Last Documented VS Vital Signs Date Time Temp Pulse Resp B/P (MAP) Pulse Ox O2 Delivery O2 Flow Rate FiO2 12/25/17 10:24 94 16 151/63 (92) 96 Room Air 12/25/17 06:18 97.9 Orders Orders Complete Blood Count With Diff (12/24/17 12:23) Comprehensive Metabolic Panel (12/24/17 12:23) Psych Screen (12/24/17 12:23) Drug Screen, Random Urine (12/24/17 12:23) Alcohol (Ethanol) (12/24/17 12:23) Diet Regular Basic (12/24/17 Dinner) Divalproex Er (Depakote Er) (12/24/17 22:15) Quetiapine (Seroquel) (12/24/17 22:15) Diet Regular Basic (12/25/17 Breakfast) Diet Regular Basic (12/25/17 Lunch) Ed Discharge Order (12/25/17 12:24) Labs Laboratory Tests Test 12/24/17 12:25 12/24/17 12:40 White Blood Count 8.9 TH/MM3 Red Blood Count 5.66 MIL/MM3 Hemoglobin 16.6 GM/DL Hematocrit 48.2 % Mean Corpuscular Volume 85.2 FL Mean Corpuscular Hemoglobin 29.3 PG Mean Corpuscular Hemoglobin Concent 34.3 % Red Cell Distribution Width 13.6 % Platelet Count 234 TH/MM3 Mean Platelet Volume 7.5 FL Neutrophils (%) (Auto) 60.2 % Lymphocytes (%) (Auto) 30.0 % Monocytes (%) (Auto) 6.5 % Eosinophils (%) (Auto) 2.6 % Basophils (%) (Auto) 0.7 % Neutrophils # (Auto) 5.3 TH/MM3 Lymphocytes # (Auto) 2.7 TH/MM3 Monocytes # (Auto) 0.6 TH/MM3 Eosinophils # (Auto) 0.2 TH/MM3 Basophils # (Auto) 0.1 TH/MM3 CBC Comment DIFF FINAL Differential Comment Blood Urea Nitrogen 7 MG/DL Creatinine 1.00 MG/DL Random Glucose 130 MG/DL Total Protein 7.5 GM/DL Albumin 4.0 GM/DL Calcium Level 8.8 MG/DL Alkaline Phosphatase 78 U/L Aspartate Amino Transf (AST/SGOT) 15 U/L Alanine Aminotransferase (ALT/SGPT) 23 U/L Total Bilirubin 0.5 MG/DL Sodium Level 140 MEQ/L Potassium Level 3.7 MEQ/L Chloride Level 106 MEQ/L Carbon Dioxide Level 25.4 MEQ/L Anion Gap 9 MEQ/L Estimat Glomerular Filtration Rate 85 ML/MIN Ethyl Alcohol Level LESS THAN 3 MG/DL Urine Opiates Screen NEG Urine Barbiturates Screen NEG Urine Amphetamines Screen NEG Urine Benzodiazepines Screen NEG Urine Cocaine Screen NEG Urine Cannabinoids Screen NEG MDM Supervised Visit with SETH: No Narrative Course Patient in no obvious distress upon re-evaluation. Any questions/concerns in reference to patient diagnosis/condition discussed and clarified prior to patient's discharge. Reinforced sheer importance of close follow up with patient 's primary physician or primary care clinic. Instructed patient to return to ED immediately, if symptoms return/worsen. Patient showed understanding of above instructions. Further instructions and recommendations were detailed in discharge paperwork. Patient ambulated without difficulty out of ED at discharge. Diagnosis Primary Impression: Encounter for psychological evaluation Referrals: [facility] Instructions: General Instructions Additional Instruction: Follow-up with your primary care physician and/or Nain Packer for reevaluation in 3-5 days. Return to the emergency department if symptoms get worse. Disposition: 01 DISCHARGE HOME Condition: Stable Nathaniel Russ Dec 25, 2017 12:24
[2017-12-25 12:43] VITALS: BP 168/72
== END 2017-12-25 12:59 | disposition home or self-care (01) ==
LOC: NEDAMB 12:11 → NEPJ 12-25 12:59
DX: F03.91 Unspecified dementia, unspecified severity, with behavioral disturbance (principal); F31.9 Bipolar disorder, unspecified; F17.290 Nicotine dependence, other tobacco product, uncomplicated; Z87.820 Personal history of traumatic brain injury
CPT/HCPCS: 80053; 80307; 85025; 99284